=== PATIENT | male | born 1935 | race Caucasian/White ===

== ENCOUNTER → 2016-08-29 | Outpatient (REF) | payer MEDICARE, OTHER ==
[~2016-08-29] MED LIST: /ESCI20TA PO; ASPI81CH PO; ASPI81TA83 OR; B-1210009 PO; B12-1CHW PO; CITA20TA4 PO; LEVO88TA3 PO; LIPI10TA PO; OMEP20TA7 PO; SYNT88TA PO
[2016-08-29 13:27] LABS: MEAN CORPUSCULAR HEMOGLOBIN 29.5 pg (27.0-33.0); MEAN CORPUSCULAR HGB CONC 32.6 g/dl (32.0-36.5); MEAN CORPUSCULAR VOLUME 90.5 fl (80.0-96.0); RED CELL DISTRIBUTION WIDTH 13.3 % (11.5-14.5); WHITE BLOOD COUNT 11.3 K/mm3 (4.0-10.0)
[2016-08-29 14:04] LABS: ALBUMIN/GLOBULIN RATIO 0.73 (1.00-1.93); ALKALINE PHOSPHATASE 88 U/L (45-117); ALT/SGPT 16 U/L (12-78); ANION GAP 8 MEQ/L (8-16); AST/SGOT 15 U/L (15-37); BILIRUBIN,TOTAL 0.5 MG/DL (0.2-1.0); BLOOD UREA NITROGEN 11 MG/DL (7-18); CALCIUM LEVEL 8.8 MG/DL (8.8-10.2); CARBON DIOXIDE LEVEL 29 MEQ/L (21-32); CHLORIDE LEVEL 105 MEQ/L (98-107); CHOLESTEROL LEVEL 151 MG/DL (<200); CREATININE FOR GFR 0.96 MG/DL (0.70-1.30); FREE T4 1.18 NG/DL (0.76-1.46); GLOMERULAR FILTRATION RATE > 60.0 (>42); GLUCOSE, FASTING 79 MG/DL (83-110); POTASSIUM SERUM 4.3 MEQ/L (3.5-5.1); SODIUM LEVEL 142 MEQ/L (136-145); TOTAL PROTEIN 7.1 GM/DL (6.4-8.2); TRIGLYCERIDES LEVEL 59 MG/DL (<150)
== END ==
LOC: M SFHCADAM 10:47
PROVIDERS: ATTEND Family Medicine
DX: D72.829 Elevated white blood cell count, unspecified (principal); E78.2 Mixed hyperlipidemia; E03.9 Hypothyroidism, unspecified
CPT/HCPCS: 80053; 80061; 84439; 84443; 85027; G0463

== ENCOUNTER → 2016-12-05 | Outpatient (CLI) | payer MEDICARE, OTHER ==
--- NOTE | 2016-12-05 18:55 | REP ---
RIGHT RIB SERIES: Four views of the right ribs are performed. No fracture or bone lesion is seen. An accompanying view of the chest demonstrates no acute infiltrate. The heart is normal in size. There is calcified tortuous aorta. IMPRESSION: Negative right rib series. Signed by Saeed Ko MD 12/05/2016 07:50 P
[2016-12-05 19:59] LABS: BASO # 0.1 K/mm3 (0.0-0.2); BASO % 0.5 % (0.0-1.0); EOS # 0.1 K/mm3 (0.0-0.50); EOS % 0.5 % (0.0-3.0); LARGE UNSTAINED CELL # 0.2 K/mm3 (0.0-0.4); LARGE UNSTAINED CELL % 1.4 % (0.0-4.0); LYMPH % 13.2 % (24.0-44.0); MEAN CORPUSCULAR HEMOGLOBIN 29.8 pg (27.0-33.0); MEAN CORPUSCULAR HGB CONC 33.1 g/dl (32.0-36.5); MEAN CORPUSCULAR VOLUME 89.8 fl (80.0-96.0); MONO % 6.5 % (0.0-5.0); NEUTROPHILS % 77.9 % (36.0-66.0); PLATELET COUNT, AUTOMATED 327 k/mm3 (150-450); RED CELL DISTRIBUTION WIDTH 13.7 % (11.5-14.5); WHITE BLOOD COUNT 15.4 K/mm3 (4.0-10.0)
[2016-12-05 20:02] LABS: ALBUMIN 3.2 GM/DL (3.2-5.2); ALBUMIN/GLOBULIN RATIO 0.82 (1.00-1.93); ALKALINE PHOSPHATASE 94 U/L (45-117); ALT/SGPT 17 U/L (12-78); ANION GAP 9 MEQ/L (8-16); AST/SGOT 15 U/L (15-37); BILIRUBIN,TOTAL 0.6 MG/DL (0.2-1.0); BLOOD UREA NITROGEN 15 MG/DL (7-18); CARBON DIOXIDE LEVEL 27 MEQ/L (21-32); CHLORIDE LEVEL 103 MEQ/L (98-107); CREATININE FOR GFR 1.06 MG/DL (0.70-1.30); GLOMERULAR FILTRATION RATE > 60.0 (>35); GLUCOSE, FASTING 89 MG/DL (83-110); POTASSIUM SERUM 4.5 MEQ/L (3.5-5.1); SODIUM LEVEL 139 MEQ/L (136-145); TOTAL PROTEIN 7.1 GM/DL (6.4-8.2)
== END ==
LOC: M ADAMS 16:24
PROVIDERS: ATTEND Physician Assistant
DX: R10.11 Right upper quadrant pain (principal)

== ENCOUNTER → 2016-12-10 | Outpatient (CLI) | payer MEDICARE, OTHER ==
[~2016-12-10] MED LIST changes: +GASTROGRAFIN SOLUTION 30ML (Q9963) As Ordered ONE; +ISOVUE-370 76% 100ML VIAL (Q9967) As Ordered ONE
--- NOTE | 2016-12-10 16:11 | REP ---
CT ABDOMEN: REASON: Right upper quadrant pain. COMPARISON: 11/22/2014 CONTRAST: 100 mL Isovue-370. There are chronic lung base changes status quo. There are no pleural or pericardiac effusions. The noncontrast enhanced portion of the examination shows hepatic and splenic densities to be within normal limits. There are no nephroliths. Contrast enhanced portion of the examination shows a rim enhancing 3.2 x 3.2 x 3.3 cm sized air fluid level arising from the posterior edge of the posterior segment of the right lobe of the liver. This has decreased significantly in size compared to the prior exam when it measured over 7 cm. There are no additional perihepatic abnormalities. The spleen, pancreas, adrenal glands, and kidneys are essentially unchanged and again seen to be within normal limits. The abdominal aorta and periaortic regions are within normal limits for the patient's age and essentially unchanged. The bowel loops and their mesenteries are essentially unchanged remaining within normal limits. CT PELVIS: There is sigmoid colon diverticulosis status quo. Multiple radiodensities are again seen in the prostate gland from previous brachytherapy. There is no free fluid or free air. Bone window technique throughout the exam shows no significant change in the appearance of the osseous structures. IMPRESSION: Right upper quadrant abscess as described above. Signed by Tim Álvarez DO 12/10/2016 05:04 P
== END ==
LOC: M RAD 13:18
PROVIDERS: ATTEND Family Medicine
DX: R10.11 Right upper quadrant pain (principal); K75.0 Abscess of liver
CPT/HCPCS: 74178; Q9963; Q9967

== ENCOUNTER → 2016-12-12 | Outpatient (CLI) | payer MEDICARE, OTHER ==
[~2016-12-12] MED LIST changes: +ACET-683 PO; +AZIL1TAB PO; +BACT800T5 PO; -GASTROGRAFIN SOLUTION 30ML (Q9963) As Ordered ONE; -ISOVUE-370 76% 100ML VIAL (Q9967) As Ordered ONE; +SULF1TAB23 PO
== END ==
LOC: M SMT 15:01
PROVIDERS: ATTEND Family Medicine
DX: K75.0 Abscess of liver (principal)
CPT/HCPCS: 36415; 85610; 85730; G0463

== ENCOUNTER → 2016-12-17 | Outpatient (CLI) | payer MEDICARE, OTHER ==
[~2016-12-17] MED LIST changes: +ISOVUE-300 61% 50ML VIAL (Q9967) As Ordered ONE
--- NOTE | 2016-12-17 18:07 | REPKIM ---
CLINICAL HISTORY: Right perihepatic abnormal fluid collection containing air suspicious to be infected as documented by the recent CT study. The referring service has asked a drainage catheter placement. PROCEDURE: Right perihepatic abscess drainage catheter placement and sinogram INTERVENTIONALIST: Amanda Johnson MD MEDICATIONS: Local Lidocaine CONTRAST: 5 mL Isovue 300 EBL: less than 5 mL DEVICE USED: 10F Resolve catheter FLUORO TIME: 2.0 minutes PROCEDURE: The risks and benefits of the procedure were explained to the patient and informed written consent was obtained. The patient was brought to the interventional radiology suite and positioned supine on the table. Time out procedure was performed. The right perihepatic abnormal cavity was localized using US and then prepped and draped in a usual sterile fashion. Using US guidance, an 18-gauge Trocar needle was advanced to the targeted abnormal fluid collection containing air, after infiltration of the skin and deep tissues with local anesthetic. Initial aspirate revealed purulent discharge consistent with an abscess. A sample of the fluid sent for gram stain and culture. Contrast injection showed a loculated abscess cavity with no evidence of fistulous communication or leak. Using this access, a guidewire was advanced into and coiled within the abscess cavity. A 10-Croatian drainage catheter was then advanced over the wire. Its distal loop was formed and locked in the abnormal cavity. Approximately 00 mL of blood tinged purulent discharge manually aspirated. The drainage catheter was then secured to the skin with the Revolution device. The drainage catheter was flushed and connected to a gravity drainage bag. The patient tolerated the procedure with no immediate complications. This procedure was performed using ultrasound and fluoroscopy guidance. IMPRESSION: Successful 10F locking drainage catheter placement in the right perihepatic abscess as discussed above. A sample of the fluid sent for c/s. Findings discussed via phone with Dr. Tomlinson at the completion of this study. Continue current antibiotics and modify based on culture and sensitivity. Plan for continued external drainage with follow up abscessogram possible drainage catheter removal/intervention in approximately one week. Dr. Johnson was present for the entire procedure as documented in the progress notes. cc: MD Wilma Bradford DO MTDD
== END | disposition home or self-care (01) ==
LOC: M IRPRO 10:35
PROVIDERS: ATTEND Family Medicine
DX: K75.0 Abscess of liver (principal)
CPT/HCPCS: 49405; 87070; 87075; 87077; 87186; 87205; C1729; C1769; C1894; Q9967

== ENCOUNTER 2016-12-20 22:22 | Inpatient (IN) | payer MEDICARE, OTHER ==
[~2016-12-20] VITALS: Ht 167.6 cm; Wt 67.7 kg
[~2016-12-20 22:22] MED LIST changes: -ACET-683 PO; -AZIL1TAB PO; -BACT800T5 PO; -ISOVUE-300 61% 50ML VIAL (Q9967) As Ordered ONE; -SULF1TAB23 PO
[2016-12-20] MEDS ORDERED: BACT800T5 PO (22:45)
[2016-12-20] MEDS ORDERED: AZIL1TAB PO (22:45)
[2016-12-20] MEDS ORDERED: ACET-683 PO (22:45)
[2016-12-20 23:35] LABS: BASO % 0.2 % (0.0-1.0); EOS # 0.3 K/mm3 (0.0-0.50); EOS % 2.3 % (0.0-3.0); LARGE UNSTAINED CELL # 0.2 K/mm3 (0.0-0.4); LARGE UNSTAINED CELL % 1.6 % (0.0-4.0); LYMPH # 2.3 K/mm3 (1.5-4.5); LYMPH % 13.7 % (24.0-44.0); MEAN CORPUSCULAR HEMOGLOBIN 28.4 pg (27.0-33.0); MEAN CORPUSCULAR HGB CONC 32.8 g/dl (32.0-36.5); MEAN CORPUSCULAR VOLUME 86.5 fl (80.0-96.0); MONO % 6.6 % (0.0-5.0); NEUTROPHILS # 11.2 K/mm3 (1.8-7.7); NEUTROPHILS % 75.6 % (36.0-66.0); PLATELET COUNT, AUTOMATED 268 k/mm3 (150-450); RED CELL DISTRIBUTION WIDTH 14.1 % (11.5-14.5); WHITE BLOOD COUNT 14.7 K/mm3 (4.0-10.0)
[2016-12-20 23:53] LABS: ANION GAP 8 MEQ/L (8-16); BLOOD UREA NITROGEN 13 MG/DL (7-18); CALCIUM LEVEL 8.2 MG/DL (8.8-10.2); CARBON DIOXIDE LEVEL 24 MEQ/L (21-32); CHLORIDE LEVEL 103 MEQ/L (98-107); CREATININE FOR GFR 0.89 MG/DL (0.70-1.30); GLOMERULAR FILTRATION RATE > 60.0 (>35); GLUCOSE, FASTING 103 MG/DL (83-110); POTASSIUM SERUM 3.6 MEQ/L (3.5-5.1); SODIUM LEVEL 135 MEQ/L (136-145)
--- NOTE | 2016-12-21 00:10 | REPUSA ---
CT of the abdomen and pelvis without contrast Clinical statement: fever, drainage. Technique: Multiple axial CT images were obtained from the base of the lungs to the floor of the pelv is utilizing 5 mm axial slices without administration of contrast. Coronal and sagittal reconstructio ns were also obtained. Comparison: 12/10/2016. Findings: Chest: There is a partially loculated right basilar pleural effusion with right lower lobe atelectasi s. The left lung base is clear. Abdomen: The kidneys are normal in size bilaterally. There is no evidence of hydronephrosis or nephro lithiasis. There is a percutaneous drainage catheter demonstrated in the right upper quadrant, burr sander ior to the right lobe of the liver. Minimal soft tissue density is seen at the site, without a discr ete fluid collection identified at this time. The liver, spleen, pancreas, gallbladder and adrenal gl ands are unremarkable. The aorta demonstrates moderate atherosclerosis, without evidence of aneurysm. There is no abdominal lymphadenopathy or ascites. Pelvis: The bowel is unremarkable, with no obstructive or inflammatory changes. There is minimal sigm oid diverticulosis. The urinary bladder is within normal limits. There is no pelvic lymphadenopathy o r ascites. Prostatic seeds are in place. Bones: There are no suspicious osseous abnormalities seen. Impression: 1. Percutaneous drainage catheter in the posterior right upper quadrant is in place. The loculated fl uid collection seen on the prior study has resolved Minimal soft tissue density remains at the site. 2. Persistent partially loculated right basilar pleural effusion with right lower lobe atelectasis. A small empyema cannot be excluded. 3. No evidence of hydronephrosis or nephrolithiasis. 4. Moderate diffuse atherosclerosis of the abdominal aorta, without evidence of aneurysm. 5. No evidence of obstructive or inflammatory bowel changes. Stable sigmoid diverticulosis.
[2016-12-21] MEDS ORDERED: ISOVUE-370 76% 100ML VIAL (Q9967) As Ordered ONE (00:21)
--- NOTE | 2016-12-21 01:30 | REPUSA ---
CT angiogram of the chest Clinical statement: empyema. Technique: Multiple axial CT images were obtained from the thoracic inlet through the upper abdomen a fter a bolus administration of nonionic intravenous contrast. Coronal and sagittal reconstructions we re also obtained. Comparison: None. Findings: The pulmonary arteries are well-opacified with contrast, with no intraluminal filling defec ts to suggest embolism. The thoracic aorta is unremarkable other than for minor atherosclerotic seg[place] es. Thyroid gland is within normal limits. There is no thoracic lymphadenopathy. There is a multilocu lated right basilar pleural effusion. There is minimal right lower lobe infiltrate.Limited imaging of the upper abdomen is unremarkable. There are no suspicious osseous lesions. Impression: 1. Multiloculated pleural effusion of the right lung base which could represent an empyema. Clinical correlation is recommended. Minimal right basilar infiltrate/atelectasis is also appreciated. 2. No evidence of pulmonary embolism.
[2016-12-21] MEDS ORDERED: diphenhydrAMINE INJ 50MG/ML VIAL (J1200) IV STA (01:52)
[2016-12-21] MEDS ORDERED: IMIPENEM/CILASTATIN 500 MG in D5W MINI-BAG PLUS 100 ML IV ONE (02:00)
[2016-12-21] MEDS ORDERED: VANCOMYCIN HCL 750 MG, VIAL MATE ADAPTER 1 EACH in D5W 250 ML IV ONE (02:00)
--- NOTE | 2016-12-21 04:34 | HPE ---
DATE OF ADMISSION: 12/21/2016 ATTENDING PHYSICIAN: Farhad Tomlinson MD. CHIEF COMPLAINT: Fever. HISTORY OF PRESENT ILLNESS: The patient is an 81-year-old white male with several chronic medical conditions listed below, came to the hospital for an evaluation of the fever. The history is provided by his significant other, as well as the caregiver since he is a poor historian. Per the family, he had a history of a liver abscess 2 years ago, which was treated with antibiotic plus drainage. Then back to Saturday he was found to have some fever, pain in his right upper quadrant. He came to the emergency room (ER). He underwent CT scan which demonstrated liver abscess again. The interventional radiologist put a drainage catheter and he was discharged back to the [facility] with oral Cipro and Flagyl. However, per the caregiver, the abscess culture came back with Escherichia (E) coli which is resistant to Cipro and Flagyl. Dr. Tomlinson was contacted yesterday and planned to change antibiotics. However, patient was not feeling good. He has some worsening pain in his right side upper quadrant, as well as has fever 100.2. It was decided to send him to the ER for further evaluation. In the ER, he underwent CT scan again, which demonstrated he has a right-sided pleural effusion and a possible empyema. Medicine called for the admission. REVIEW OF SYSTEMS: Not available due to underlying dementia. PAST MEDICAL HISTORY: 1. Liver abscess. 2. Prostate cancer status post radiation and surgery. 3. Parkinson's disease. 4. Hypothyroidism. PAST SURGICAL HISTORY: 1. Status post cholecystectomy. 2. Prostate gland surgery. FAMILY HISTORY: Both parents , a long time ago. No family history of diabetes or coronary artery disease. SOCIAL HISTORY: No history of tobacco use. No history of alcohol abuse. No illicit drug abuse. He is DO NOT RESUSCITATE. ALLERGIES: Allergic to PENICILLIN, MORPHINE, PROCAINE, FLUTICASONE. MEDICATIONS: - Tylenol - aspirin - Lipitor - vitamin B12 - Synthroid - rasagiline PHYSICAL EXAMINATION: VITAL SIGNS: Temperature 98.7, pulse 77, respirations 16, blood pressure 132/67, and oxygen saturation 97% on room air. GENERAL: He is awake, alert, oriented to people only. Mildly demented. HEENT: Atraumatic. Pupils are equal, round and reactive to light. No jaundice. Extraocular muscles intact. Ears, nose and throat are normal. No oral ulcer on mouth mucosa. A little bit dry. Neck no jugular venous distention (JVD). No bruits. LUNGS: Clear, no wheezing, no crackles. HEART: S1, S2 regular. No murmur. ABDOMEN: Soft. Bowel sounds positive. Nontender. He has right upper quadrant intra-abdominal drainage catheter. LOWER EXTREMITIES: No edema in bilateral lower extremities. NEUROLOGICAL: Nonfocal. SKIN: No rash. PSYCHOLOGICAL: No acute psychosis. DIAGNOSTIC LABORATORY STUDIES: Including the following: CBC and differential showed WBC 140.7, hemoglobin and hematocrit 11.8/36, platelets 268. Sodium 135, potassium 3.6, chloride 103, bicarbonate 24, BUN 13, creatinine 0.8, glucose 103. CT of abdomen, as well as chest was reviewed. IMPRESSION: 1. Liver abscess status post catheter drainage. 2. Right pleural effusion, possible empyema. 3. History of Parkinson's disease. 4. History of hypothyroidism. PLAN: Patient will be admitted to the medical/surgical floor. His abscess culture came back with Escherichia (E) coli which is resistant to Cipro. We started him on intravenous (IV) ceftriaxone. The CT demonstrated possible right pleural effusion and empyema. He may need consult interventional radiology for possible drainage. Otherwise, medically stable. Will continue his most routine medications.
[2016-12-21 05:15] VITALS: BP 137/80
[2016-12-21] MEDS: cefTRIAXone SOD 1 GM in D5W MINI-BAG PLUS 50 ML IV SCH (06:44)
[2016-12-21] MEDS: NS 1,000 ML IV SCH ×3 (06:44→23:14)
[2016-12-21] MEDS: LEVOTHYROXINE 88MCG TABLET (0.088 MG) PO SCH (06:44)
[2016-12-21] MEDS: HEPARIN SOD (PORCINE) 5000 UNITS/ML VIAL SC SCH ×3 (06:45→21:22)
[2016-12-21] MEDS: PANTOPRAZOLE 40MG TAB (PROTONIX) PO SCH (08:28)
[2016-12-21] MEDS: CYANOCOBALAMIN 500 MCG TAB PO SCH ×2 (08:28→21:22)
[2016-12-21] MEDS: SENOKOT S TAB PO SCH ×2 (08:28→21:22)
[2016-12-21 08:50] LABS: MEAN CORPUSCULAR HEMOGLOBIN 28.6 pg (27.0-33.0); MEAN CORPUSCULAR HGB CONC 32.2 g/dl (32.0-36.5); MEAN CORPUSCULAR VOLUME 88.9 fl (80.0-96.0); RED CELL DISTRIBUTION WIDTH 13.9 % (11.5-14.5); WHITE BLOOD COUNT 17.9 K/mm3 (4.0-10.0)
[2016-12-21] MEDS ORDERED: AZILECT 1 MG PO SCH (09:00)
[2016-12-21 09:49] LABS: ALBUMIN 2.5 GM/DL (3.2-5.2); ALBUMIN/GLOBULIN RATIO 0.69 (1.00-1.93); ALKALINE PHOSPHATASE 60 U/L (45-117); ALT/SGPT 10 U/L (12-78); ANION GAP 8 MEQ/L (8-16); AST/SGOT 15 U/L (15-37); BILIRUBIN,TOTAL 0.7 MG/DL (0.2-1.0); BLOOD UREA NITROGEN 10 MG/DL (7-18); CALCIUM LEVEL 7.9 MG/DL (8.8-10.2); CARBON DIOXIDE LEVEL 25 MEQ/L (21-32); CHLORIDE LEVEL 105 MEQ/L (98-107); CREATININE FOR GFR 0.98 MG/DL (0.70-1.30); GLOMERULAR FILTRATION RATE > 60.0 (>35); GLUCOSE, FASTING 123 MG/DL (83-110); POTASSIUM SERUM 3.8 MEQ/L (3.5-5.1); SODIUM LEVEL 138 MEQ/L (136-145); TOTAL PROTEIN 6.1 GM/DL (6.4-8.2)
--- NOTE | 2016-12-21 10:49 | IPNPDOC ---
Subjective Date Seen The patient was seen on 12/21/16. Subjective Chief Complaint/HPI The patient is a 81-year-old male admitted with a reason for visit of Liver Abcess. Events since last encounter Pt this morning c/o persistent R upper neck/chest pain, at the collarbone. General: Reports: Fatigue Constitutional: Denies: Chills, Fever Pulmonary: Reports: Dyspnea, Cough Cardiovascular: Denies: Chest Pain, Palpitations Gastrointestinal: Reports: Diarrhea (one loose BM this morning), Denies: Nausea, Vomiting Neurological: Reports: Weakness Psych: Reports: Mood Normal Objective Physical Examination General Exam: Positive: Alert, No Acute Distress ENT Exam: Positive: Mucous membr. moist/pink Chest Exam: Positive: Diminished, Negative: Clear to auscultation, Normal air movement, Rales, Rhonchi, Wheezing Heart Exam: Positive: Rate Normal, Normal S1, Normal S2, Negative: Murmurs Abdomen Exam: Positive: Normal bowel sounds, Soft, Negative: Tenderness Extremity Exam: Negative: Edema Psych Exam: Positive: Mental status NL Assessment /Plan Problems (1) Liver abscess Status: Acute Response to Treatment: Stable Discussed With: Nurse, Senior Software Manager, Patient Problem Specific Plan: Consult Specialist, Monitor Clinically, Repeat Labs Problem Text: ceftriaxone D1 (12/20 received vanco 1 and Primaxin) 12/21/16 WBC 17.9 (12/20 14.7), afebrile, ESR 63, CRP 13 12/17/16 Right perihepatic abscess drainage catheter placement and sinogram performed by Dr. Johnson-culture: few E Coli res to cipro (was started on cipro/ metro po until 12/21, wherein changed to ceftriaxone) 12/20/16 BCX P 12/10/16 CT AP Contrast enhanced portion of the examination shows a rim enhancing 3.2 x 3.2 x 3.3 cm sized air fluid level arising from the posterior edge of the posterior segment of the right lobe of the liver Also with h/o abscess 2014, managed by Dr Carrillo at that time. (2) Empyema of right pleural space Status: Acute Response to Treatment: Stable Discussed With: Nurse, Senior Software Manager, Patient Problem Specific Plan: Consult Specialist, Monitor Clinically, Repeat Labs Problem Text: 12/21/16 s/p thoracentesis of possible empyema (30 cc translucent yellow fluid removed) Rocephin has good penetration to the pleural space. 12/21/16 CT chest c multiloculated pleural effusion of the right lung base which could represent an empyema. (3) Hypothyroidism Status: Chronic Response to Treatment: Stable Problem Specific Plan: Monitor Clinically Problem Text: Cont home med. Plan/VTE VTE Prophylaxis Ordered?: Yes VS, I&O, 24H, Fishbone Vital Signs/I&O Vital Signs Date Time Temp Pulse Resp B/P (MAP) Pulse Ox O2 Delivery O2 Flow Rate FiO2 12/21/16 05:15 98.1 78 18 137/80 (99) 96 Room Air I&O- Last 24 Hours up to 6 AM 12/21/16 06:00 Intake Total 90 ml Output Total 0 ml Balance 90 ml Laboratory Data 24H LABS Laboratory Tests 2 12/20/16 23:19: White Blood Count 14.7H, Red Blood Count 4.16L, Hemoglobin 11.8L, Hematocrit 36.0L, Mean Corpuscular Volume 86.5, Mean Corpuscular Hemoglobin 28.4, Mean Corpuscular Hemoglobin Concent 32.8, Red Cell Distribution Width 14.1, Platelet Count 268, Neutrophils (%) (Auto) 75.6H, Lymphocytes (%) (Auto) 13.7L, Monocytes (%) (Auto) 6.6H, Eosinophils (%) (Auto) 2.3, Basophils (%) (Auto) 0.2 , Neutrophils # (Auto) 11.2H, Lymphocytes # (Auto) 2.3, Monocytes # (Auto) 1.0H , Eosinophils # (Auto) 0.3, Basophils # (Auto) 0.0, Large Unclassified Cells % 1.6, Large Unclassified Cells # 0.2, Anion Gap 8, Glomerular Filtration Rate > 60.0, Lactic Acid Level 0.7, Blood Urea Nitrogen 13, Creatinine 0.89, Sodium Level 135L, Potassium Level 3.6, Chloride Level 103, Carbon Dioxide Level 24, Calcium Level 8.2L 12/21/16 08:41: Anion Gap 8, Glomerular Filtration Rate > 60.0, Blood Urea Nitrogen 10, Creatinine 0.98, Sodium Level 138, Potassium Level 3.8, Chloride Level 105, Carbon Dioxide Level 25, Calcium Level 7.9L, Erythrocyte Sedimentation Rate 63H , Aspartate Amino Transf (AST/SGOT) 15, Alanine Aminotransferase (ALT/SGPT) 10L , Alkaline Phosphatase 60, Total Bilirubin 0.7, Total Protein 6.1L, Albumin 2.5L , C-Reactive Protein, Quantitative 13.10H, Albumin/Globulin Ratio 0.69L CBC/BMP Laboratory Tests 12/20/16 23:19 Red Blood Count 4.16 L, Mean Corpuscular Volume 86.5, Mean Corpuscular Hemoglobin 28.4, Mean Corpuscular Hemoglobin Concent 32.8, Red Cell Distribution Width 14.1, Neutrophils (%) (Auto) 75.6 H, Lymphocytes (%) (Auto) 13.7 L, Monocytes (%) (Auto) 6.6 H, Eosinophils (%) (Auto) 2.3, Basophils (%) ( Auto) 0.2, Neutrophils # (Auto) 11.2 H, Lymphocytes # (Auto) 2.3, Monocytes # ( Auto) 1.0 H, Eosinophils # (Auto) 0.3, Basophils # (Auto) 0.0, Calcium Level 8.2 L 12/21/16 08:41 Red Blood Count 4.35, Mean Corpuscular Volume 88.9, Mean Corpuscular Hemoglobin 28.6, Mean Corpuscular Hemoglobin Concent 32.2, Red Cell Distribution Width 13.9 , Calcium Level 7.9 L, Aspartate Amino Transf (AST/SGOT) 15, Alanine Aminotransferase (ALT/SGPT) 10 L, Alkaline Phosphatase 60, Total Bilirubin 0.7, Total Protein 6.1 L, Albumin 2.5 L Microbiology Microbiology 12/20/16 Blood Culture, Received Pending CHRIS HERNANDEZ PA-C Dec 21, 2016 10:49 Jose Manuel Osuna M.D. Dec 21, 2016 15:29
--- NOTE | 2016-12-21 14:20 | REPKIM ---
CLINICAL HISTORY: Patient with right perihepatic abscess, s/p drainage catheter placement on 12/17/16 presents with loculated pleural effusion on the right suspicious to be infected. The right perihepatic abscess culture revealed resistant E coli and antibiotics were changed accordingly. Patient presents for diagnostic aspiration of the loculated pleural effusion. PROCEDURE PERFORMED: Diagnostic aspiration loculated pleural effusion on the right INTERVENTIONALIST: Amanda Johnson MD CONSENT: The risks, benefits and alternatives to the procedure were explained to the patients son and informed phone consent was obtained and witnessed. MEDICATIONS: Local Lidocaine EBL: less than 1 mL PROCEDURE: The patient was brought to the interventional radiology suite where a timeout procedure was performed. The patient was placed with the right side up. The lower chest was prepped and draped in a sterile fashion. Ultrasound was used to locate the largest pocket of right sided pleural effusion. Ultrasound showed a loculated pleural effusion in the medial posterior lower right chest. A smaller effusion in the mid to lateral posterior chest appears to be communicating with the medial pleural effusion. The involved right lower chest pleura is thickened. Local anesthetic was established using Lidocaine. Using ultrasound guidance, a 19 gauge Clarassance centesis catheter was introduced into the target medial loculated pleural effusion. A total of 30 mL of serous fluid was removed. Post aspiration ultrasound showed decreased in size of the mid to lateral effusion as well. The catheter was removed, and manual pressure was applied to the puncture site, followed by application of a sterile dressing. A sample of the fluid sent for gram stain and culture. The patient tolerated the procedure well with no immediate complications. This procedure was performed using ultrasound. Dr. Johnson was present. IMPRESSION: Right perihepatic abscess with resistant E coli. Patient presents with loculated pleural effusion on the right; reactive vs infected fluid. Successful diagnostic aspiration of the loculated pleural effusion. A sample of the fluid sent for c/s. Post aspiration upright CXR demonstrates no pneumothorax. Continue antibiotics. cc: MD Lorena Bradford PA-C MTDD
[2016-12-21 14:45] VITALS: BP 127/64
--- NOTE | 2016-12-21 14:47 | REP ---
Clinical: Status post abscess drainage. Technique: AP and lateral views. Comparison: 03/22/2016. Findings: Mediastinum and cardiac silhouette are stable and within normal limits. Lung bell demonstrate diffuse chronic interstitial changes with bibasilar atelectasis and small pleural effusions. No pneumothorax. Skeletal structures demonstrate osteopenia and degenerative changes. Impression: Bibasilar opacities suggesting atelectasis and small pleural effusions. Signed by Alex Birch MD 12/21/2016 02:39 P
[2016-12-21 15:15] VITALS: BP 128/60
[2016-12-21] MEDS: ACETAMINOPHEN TAB 650MG DOSE (2X325MG) PO PRN ×2 (15:27→21:22)
[2016-12-21 22:00] VITALS: BP 121/58
[2016-12-22] MEDS: cefTRIAXone SOD 1 GM in D5W MINI-BAG PLUS 50 ML IV SCH (05:58)
[2016-12-22] MEDS: LEVOTHYROXINE 88MCG TABLET (0.088 MG) PO SCH (05:58)
[2016-12-22] MEDS: HEPARIN SOD (PORCINE) 5000 UNITS/ML VIAL SC SCH ×3 (05:59→21:26)
[2016-12-22 06:00] VITALS: BP 146/79
[2016-12-22 06:45] LABS: BASO % 0.3 % (0.0-1.0); EOS # 0.3 K/mm3 (0.0-0.50); LARGE UNSTAINED CELL # 0.2 K/mm3 (0.0-0.4); LARGE UNSTAINED CELL % 1.6 % (0.0-4.0); LYMPH # 1.2 K/mm3 (1.5-4.5); MEAN CORPUSCULAR HEMOGLOBIN 29.2 pg (27.0-33.0); MEAN CORPUSCULAR HGB CONC 32.9 g/dl (32.0-36.5); MEAN CORPUSCULAR VOLUME 88.8 fl (80.0-96.0); MONO # 0.6 K/mm3 (0.0-0.8); NEUTROPHILS # 8.2 K/mm3 (1.8-7.7); NEUTROPHILS % 79.1 % (36.0-66.0); PLATELET COUNT, AUTOMATED 289 k/mm3 (150-450); RED CELL DISTRIBUTION WIDTH 13.9 % (11.5-14.5); WHITE BLOOD COUNT 10.3 K/mm3 (4.0-10.0)
[2016-12-22 07:00] LABS: ALBUMIN 2.6 GM/DL (3.2-5.2); ALBUMIN/GLOBULIN RATIO 0.58 (1.00-1.93); ALKALINE PHOSPHATASE 57 U/L (45-117); ALT/SGPT 14 U/L (12-78); ANION GAP 8 MEQ/L (8-16); AST/SGOT 31 U/L (15-37); BILIRUBIN,TOTAL 0.6 MG/DL (0.2-1.0); BLOOD UREA NITROGEN 10 MG/DL (7-18); CALCIUM LEVEL 8.8 MG/DL (8.8-10.2); CARBON DIOXIDE LEVEL 23 MEQ/L (21-32); CHLORIDE LEVEL 105 MEQ/L (98-107); CREATININE FOR GFR 0.87 MG/DL (0.70-1.30); GLOMERULAR FILTRATION RATE > 60.0 (>35); GLUCOSE, FASTING 96 MG/DL (83-110); POTASSIUM SERUM 3.3 MEQ/L (3.5-5.1); SODIUM LEVEL 136 MEQ/L (136-145); TOTAL PROTEIN 7.1 GM/DL (6.4-8.2)
[2016-12-22 07:12] LABS: ERYTHROCYTE SEDIMENTATION RATE 63 mm/hr (0-20)
[2016-12-22] MEDS: PANTOPRAZOLE 40MG TAB (PROTONIX) PO SCH (09:44)
[2016-12-22] MEDS: SENOKOT S TAB PO SCH ×2 (09:44→19:19)
[2016-12-22] MEDS: CYANOCOBALAMIN 500 MCG TAB PO SCH ×2 (09:45→19:19)
[2016-12-22 14:00] VITALS: BP 132/73
[2016-12-22] MEDS ORDERED: OLANZapine 2.5MG TABLET PO ONE (14:00)
[2016-12-22] MEDS: ACETAMINOPHEN TAB 650MG DOSE (2X325MG) PO PRN (14:15)
--- NOTE | 2016-12-22 15:45 | IPNPDOC ---
Subjective Date Seen The patient was seen on 12/22/16. Subjective Chief Complaint/HPI The patient is a 81-year-old male admitted with a reason for visit of Liver Abcess. Events since last encounter Continues to have episodes of confusion. Nursing notes that he often gets confused and tries to walk away. He has difficulty being redirected. Improves with family present. Constitutional: Denies: Chills, Fever Pulmonary: Denies: Dyspnea, Cough Cardiovascular: Denies: Chest Pain, Palpitations, Orthopnea Gastrointestinal: Denies: Nausea, Vomiting, Abdominal Pain, Diarrhea, Constipation Neurological: Reports: Confusion, Denies: Weakness, Numbness, Incoordination, Change in speech Psych: Reports: Mood Normal, Anxiety, Memory Issues Other systems 10 point review systems otherwise negative Objective Physical Examination General Exam: Positive: Alert, No Acute Distress ENT Exam: Positive: Mucous membr. moist/pink Chest Exam: Positive: Diminished, Negative: Clear to auscultation, Normal air movement, Rales, Rhonchi, Wheezing Heart Exam: Positive: Rate Normal, Normal S1, Normal S2, Negative: Murmurs Abdomen Exam: Positive: Normal bowel sounds, Soft, Negative: Tenderness Extremity Exam: Negative: Edema Psych Exam: Positive: Mental status NL Assessment /Plan Problems (1) Liver abscess Status: Acute Response to Treatment: Stable Discussed With: Nurse, Potline Monitor, Patient Problem Specific Plan: Consult Specialist, Monitor Clinically, Repeat Labs Problem Text: ceftriaxone D3 (12/20 received vanco 1 and Primaxin). Afebrile, and vital signs stable. -Gram stain, fluid culture, ascites culture, and blood culture are negative; final results -We will plan on transition to oral medications in anticipation for discharge; clindamycin would cover anaerobes and gram positives and is not on patient's allergy list (2) Empyema of right pleural space Status: Acute Response to Treatment: Stable Discussed With: Nurse, Potline Monitor, Patient Problem Specific Plan: Consult Specialist, Monitor Clinically, Repeat Labs Problem Text: 12/21/16 s/p thoracentesis of possible empyema (30 cc translucent yellow fluid removed) Rocephin has good penetration to the pleural space. 12/21/16 CT chest c multiloculated pleural effusion of the right lung base which could represent an empyema. (3) Hypothyroidism Status: Chronic Response to Treatment: Stable Problem Specific Plan: Monitor Clinically Problem Text: Cont home med. Plan/VTE VTE Prophylaxis Ordered?: Yes Disposition Possible discharge to [facility] on Saturday VS, I&O, 24H, Alyssae Vital Signs/I&O Vital Signs Date Time Temp Pulse Resp B/P (MAP) Pulse Ox O2 Delivery O2 Flow Rate FiO2 12/22/16 14:15 18 12/22/16 06:00 98.9 84 146/79 (101) 96 Room Air I&O- Last 24 Hours up to 6 AM 12/22/16 06:00 Intake Total 2000 ml Output Total 0 ml Balance 2000 ml Laboratory Data 24H LABS Laboratory Tests 2 12/22/16 06:00: White Blood Count 10.3H, Red Blood Count 4.28L, Hemoglobin 12.5L, Hematocrit 38.1L, Mean Corpuscular Volume 88.8, Mean Corpuscular Hemoglobin 29.2, Mean Corpuscular Hemoglobin Concent 32.9, Red Cell Distribution Width 13.9, Platelet Count 289, Neutrophils (%) (Auto) 79.1H, Lymphocytes (%) (Auto) 10.0L, Monocytes (%) (Auto) 6.0H, Eosinophils (%) (Auto) 3.0, Basophils (%) (Auto) 0.3 , Neutrophils # (Auto) 8.2H, Lymphocytes # (Auto) 1.2L, Monocytes # (Auto) 0.6, Eosinophils # (Auto) 0.3, Basophils # (Auto) 0.0, Large Unclassified Cells % 1.6 , Large Unclassified Cells # 0.2, Erythrocyte Sedimentation Rate 63H, Anion Gap 8, Glomerular Filtration Rate > 60.0, Blood Urea Nitrogen 10, Creatinine 0.87, Sodium Level 136, Potassium Level 3.3L, Chloride Level 105, Carbon Dioxide Level 23, Calcium Level 8.8, Aspartate Amino Transf (AST/SGOT) 31, Alanine Aminotransferase (ALT/SGPT) 14, Alkaline Phosphatase 57, Total Bilirubin 0.6, Total Protein 7.1, Albumin 2.6L, C-Reactive Protein, Quantitative 15.10H, Albumin/Globulin Ratio 0.58L CBC/BMP Laboratory Tests 12/22/16 06:00 Red Blood Count 4.28 L, Mean Corpuscular Volume 88.8, Mean Corpuscular Hemoglobin 29.2, Mean Corpuscular Hemoglobin Concent 32.9, Red Cell Distribution Width 13.9, Neutrophils (%) (Auto) 79.1 H, Lymphocytes (%) (Auto) 10.0 L, Monocytes (%) (Auto) 6.0 H, Eosinophils (%) (Auto) 3.0, Basophils (%) ( Auto) 0.3, Neutrophils # (Auto) 8.2 H, Lymphocytes # (Auto) 1.2 L, Monocytes # ( Auto) 0.6, Eosinophils # (Auto) 0.3, Basophils # (Auto) 0.0, Calcium Level 8.8, Aspartate Amino Transf (AST/SGOT) 31, Alanine Aminotransferase (ALT/SGPT) 14, Alkaline Phosphatase 57, Total Bilirubin 0.6, Total Protein 7.1, Albumin 2.6 L Microbiology Microbiology 12/20/16 Blood Culture - Preliminary, Resulted No growth after 24 hours . All specim... 12/21/16 Anaerobic Culture, Received Pending 12/21/16 Gram Stain - Final, Resulted 12/21/16 Body Fluid Culture, Resulted Pending NETTE YU MD Dec 22, 2016 15:45
[2016-12-22] MEDS: NS 1,000 ML IV SCH ×2 (16:19→19:19)
[2016-12-22 20:00] VITALS: BP 129/76
[2016-12-23] MEDS: NS 1,000 ML IV SCH ×3 (01:22→21:59)
[2016-12-23] MEDS: LEVOTHYROXINE 88MCG TABLET (0.088 MG) PO SCH (05:59)
[2016-12-23] MEDS: cefTRIAXone SOD 1 GM in D5W MINI-BAG PLUS 50 ML IV SCH (05:59)
[2016-12-23 06:00] VITALS: BP 144/77
[2016-12-23] MEDS: HEPARIN SOD (PORCINE) 5000 UNITS/ML VIAL SC SCH ×3 (06:00→21:59)
[2016-12-23] MEDS: PANTOPRAZOLE 40MG TAB (PROTONIX) PO SCH (12:23)
[2016-12-23] MEDS: CYANOCOBALAMIN 500 MCG TAB PO SCH ×2 (12:23→21:59)
[2016-12-23] MEDS: SENOKOT S TAB PO SCH ×2 (12:23→21:58)
[2016-12-23 14:00] VITALS: BP 124/68
--- NOTE | 2016-12-23 15:28 | IPNPDOC ---
Subjective Date Seen The patient was seen on 12/23/16. Subjective Chief Complaint/HPI The patient is a 81-year-old male admitted with a reason for visit of Liver Abcess. Events since last encounter Patient doing well today. Continues to have confusion and thinks that "the nurses are making fun of me and laughing at me." He states that "they are mad at me." Healthcare proxy indicates that nothing has changed. Patient denies any current symptoms today. Constitutional: Denies: Chills, Fever, Malaise Skin: Denies: Rash Pulmonary: Denies: Dyspnea, Cough Cardiovascular: Denies: Chest Pain, Palpitations Gastrointestinal: Denies: Nausea, Vomiting, Abdominal Pain, Diarrhea, Constipation Neurological: Reports: Confusion, Denies: Weakness, Numbness, Incoordination, Change in speech Psych: Reports: Mood Normal, Anxiety, Memory Issues Objective Physical Examination General Exam: Positive: Alert, No Acute Distress ENT Exam: Positive: Mucous membr. moist/pink Chest Exam: Positive: Diminished, Negative: Clear to auscultation, Normal air movement, Rales, Rhonchi, Wheezing Heart Exam: Positive: Rate Normal, Normal S1, Normal S2, Negative: Murmurs Abdomen Exam: Positive: Normal bowel sounds, Soft, Negative: Tenderness Extremity Exam: Negative: Edema Psych Exam: Negative: Mental status NL (alert and oriented to person only), Memory Intact, Oriented x 3 (acute delirium) Assessment /Plan Problems (1) Liver abscess Status: Acute Response to Treatment: Stable Discussed With: Nurse, Print Inspector, Patient Problem Specific Plan: Consult Specialist, Monitor Clinically, Repeat Labs Problem Text: ceftriaxone D3 (12/20 received vanco 1 and Primaxin). Afebrile, and vital signs stable. -Gram stain, fluid culture, ascites culture, and blood culture are negative; final results -We will plan on transition to oral medications in anticipation for discharge; clindamycin would cover anaerobes and gram positives and is not on patient's allergy list (2) Empyema of right pleural space Status: Acute Response to Treatment: Stable Discussed With: Nurse, Print Inspector, Patient Problem Specific Plan: Consult Specialist, Monitor Clinically, Repeat Labs Problem Text: Fluid cultures are negative, final results (3) Hypothyroidism Status: Chronic Response to Treatment: Stable Problem Specific Plan: Monitor Clinically Problem Text: Cont home med. Plan/VTE VTE Prophylaxis Ordered?: Yes Disposition Plan for discharge back to [facility] keep on by mouth clindamycin on Saturday VS, I&O, 24H, Fishbone Vital Signs/I&O Vital Signs Date Time Temp Pulse Resp B/P (MAP) Pulse Ox O2 Delivery O2 Flow Rate FiO2 12/23/16 06:00 98.9 82 18 144/77 (99) 97 Room Air I&O- Last 24 Hours up to 6 AM 12/23/16 06:00 Intake Total 1660 ml Output Total 0 ml Balance 1660 ml Laboratory Data Microbiology Microbiology 12/20/16 Blood Culture - Preliminary, Resulted No Growth after 48 hours. All Specime... 12/21/16 Anaerobic Culture - Final, Complete 12/21/16 Gram Stain - Final, Complete 12/21/16 Body Fluid Culture - Final, Complete NETTE YU MD Dec 23, 2016 15:28
[2016-12-23] MEDS ORDERED: OLANZapine 2.5MG TABLET PO SCH (21:00)
[2016-12-23 22:00] VITALS: BP 121/61
[2016-12-24] MEDS: cefTRIAXone SOD 1 GM in D5W MINI-BAG PLUS 50 ML IV SCH (05:56)
[2016-12-24] MEDS: HEPARIN SOD (PORCINE) 5000 UNITS/ML VIAL SC SCH ×3 (05:59→21:51)
[2016-12-24] MEDS: LEVOTHYROXINE 88MCG TABLET (0.088 MG) PO SCH (05:59)
[2016-12-24 06:00] VITALS: BP 116/62
[2016-12-24] MEDS: CYANOCOBALAMIN 500 MCG TAB PO SCH ×2 (10:18→21:51)
[2016-12-24] MEDS: PANTOPRAZOLE 40MG TAB (PROTONIX) PO SCH (10:18)
[2016-12-24] MEDS: NS 1,000 ML IV SCH (10:18)
[2016-12-24] MEDS: SENOKOT S TAB PO SCH ×2 (10:18→21:51)
--- NOTE | 2016-12-24 10:41 | IPNPDOC ---
Subjective Date Seen The patient was seen on 12/24/16. Subjective Chief Complaint/HPI The patient is a 81-year-old male admitted with a reason for visit of Liver Abcess. Events since last encounter Pt denies any new issues. Denies CP, Abd pain, SOB. Constitutional: Denies: Chills, Fever Pulmonary: Denies: Dyspnea Cardiovascular: Denies: Chest Pain Gastrointestinal: Denies: Abdominal Pain Objective Physical Examination General Exam: Positive: Alert, No Acute Distress ENT Exam: Positive: Mucous membr. moist/pink Chest Exam: Positive: Diminished, Negative: Clear to auscultation, Normal air movement, Rales, Rhonchi, Wheezing Heart Exam: Positive: Rate Normal, Normal S1, Normal S2, Negative: Murmurs Abdomen Exam: Positive: Normal bowel sounds, Soft, Negative: Tenderness Extremity Exam: Negative: Edema Psych Exam: Positive: Mental status NL (alert and oriented to person only), Negative: Memory Intact, Oriented x 3 (acute delirium) Assessment /Plan Assessment Family Medicine Attending Note: I saw and examined Mr. Bryan, discussed with Ike Haley, FAYE-C agree with their note as documented. Mr. Bryan seems to making slow but steady clinical progress. We'll continue his current regimen for now. (halfway house counselor) Problems (1) Liver abscess Status: Acute Response to Treatment: Stable Discussed With: Nurse, Company Tanker Truck Driver, Patient Problem Specific Plan: Consult Specialist, Monitor Clinically, Repeat Labs Problem Text: 12/24 - Today's labs pending. IV ceftriaxone D4 (12/20 received vanco 1 and Primaxin). 12/23 - ceftriaxone D3 (12/20 received vanco 1 and Primaxin). Afebrile, and vital signs stable. -Gram stain, fluid culture, ascites culture, and blood culture are negative; final results -We will plan on transition to oral medications in anticipation for discharge; clindamycin would cover anaerobes and gram positives and is not on patient's allergy list (2) Empyema of right pleural space Status: Acute Response to Treatment: Stable Discussed With: Nurse, Company Tanker Truck Driver, Patient Problem Specific Plan: Consult Specialist, Monitor Clinically, Repeat Labs Problem Text: Fluid cultures are negative, final results (3) Hypothyroidism Status: Chronic Response to Treatment: Stable Problem Specific Plan: Monitor Clinically Problem Text: Cont home med. Plan/VTE VTE Prophylaxis Ordered?: Yes VS, I&O, 24H, Fishbone Vital Signs/I&O Vital Signs Date Time Temp Pulse Resp B/P (MAP) Pulse Ox O2 Delivery O2 Flow Rate FiO2 12/24/16 06:00 98.1 89 18 116/62 (80) 91 Room Air I&O- Last 24 Hours up to 6 AM 12/24/16 06:00 Intake Total 1920 ml Output Total 0 ml Balance 1920 ml Laboratory Data Microbiology Microbiology 12/20/16 Blood Culture - Preliminary, Resulted No Growth after 72 hours. All specime... 12/21/16 Anaerobic Culture - Final, Complete 12/21/16 Gram Stain - Final, Complete 12/21/16 Body Fluid Culture - Final, Complete Ike HaleyC Dec 24, 2016 10:41 Mike Benoit MD Dec 24, 2016 20:33
[2016-12-24 11:12] LABS: BASO % 0.4 % (0.0-1.0); EOS # 0.3 K/mm3 (0.0-0.50); EOS % 3.5 % (0.0-3.0); LARGE UNSTAINED CELL # 0.2 K/mm3 (0.0-0.4); LARGE UNSTAINED CELL % 2.3 % (0.0-4.0); LYMPH # 1.5 K/mm3 (1.5-4.5); LYMPH % 16.2 % (24.0-44.0); MEAN CORPUSCULAR HEMOGLOBIN 28.8 pg (27.0-33.0); MEAN CORPUSCULAR HGB CONC 32.8 g/dl (32.0-36.5); MEAN CORPUSCULAR VOLUME 87.7 fl (80.0-96.0); MONO # 0.5 K/mm3 (0.0-0.8); MONO % 6.6 % (0.0-5.0); NEUTROPHILS # 5.8 K/mm3 (1.8-7.7); PLATELET COUNT, AUTOMATED 295 k/mm3 (150-450); RED CELL DISTRIBUTION WIDTH 14.2 % (11.5-14.5); WHITE BLOOD COUNT 8.2 K/mm3 (4.0-10.0)
[2016-12-24 11:53] LABS: ALBUMIN 1.9 GM/DL (3.2-5.2); ALBUMIN/GLOBULIN RATIO 0.58 (1.00-1.93); ALKALINE PHOSPHATASE 43 U/L (45-117); ALT/SGPT 20 U/L (12-78); ANION GAP 7 MEQ/L (8-16); AST/SGOT 30 U/L (15-37); BILIRUBIN,TOTAL 0.3 MG/DL (0.2-1.0); BLOOD UREA NITROGEN 5 MG/DL (7-18); CALCIUM LEVEL 7.9 MG/DL (8.8-10.2); CARBON DIOXIDE LEVEL 25 MEQ/L (21-32); CHLORIDE LEVEL 110 MEQ/L (98-107); CREATININE FOR GFR 0.74 MG/DL (0.70-1.30); GLOMERULAR FILTRATION RATE > 60.0 (>35); GLUCOSE, FASTING 90 MG/DL (83-110); POTASSIUM SERUM 3.5 MEQ/L (3.5-5.1); SODIUM LEVEL 142 MEQ/L (136-145); TOTAL PROTEIN 5.2 GM/DL (6.4-8.2)
[2016-12-24 14:00] VITALS: BP 136/66
[2016-12-24 22:00] VITALS: BP 141/72
[2016-12-25] MEDS: HEPARIN SOD (PORCINE) 5000 UNITS/ML VIAL SC SCH ×3 (05:29→21:57)
[2016-12-25] MEDS: cefTRIAXone SOD 1 GM in D5W MINI-BAG PLUS 50 ML IV SCH (05:29)
[2016-12-25] MEDS: LEVOTHYROXINE 88MCG TABLET (0.088 MG) PO SCH (05:29)
[2016-12-25 06:19] VITALS: BP 148/72
[2016-12-25 06:44] LABS: BASO % 0.4 % (0.0-1.0); EOS # 0.4 K/mm3 (0.0-0.50); EOS % 4.1 % (0.0-3.0); LARGE UNSTAINED CELL # 0.2 K/mm3 (0.0-0.4); LARGE UNSTAINED CELL % 2.4 % (0.0-4.0); LYMPH # 1.6 K/mm3 (1.5-4.5); LYMPH % 15.6 % (24.0-44.0); MEAN CORPUSCULAR HEMOGLOBIN 29.6 pg (27.0-33.0); MONO # 0.7 K/mm3 (0.0-0.8); MONO % 6.9 % (0.0-5.0); NEUTROPHILS # 7.1 K/mm3 (1.8-7.7); NEUTROPHILS % 70.7 % (36.0-66.0); PLATELET COUNT, AUTOMATED 311 k/mm3 (150-450); RED CELL DISTRIBUTION WIDTH 13.8 % (11.5-14.5)
[2016-12-25 06:56] LABS: ALBUMIN/GLOBULIN RATIO 0.54 (1.00-1.93); ALKALINE PHOSPHATASE 46 U/L (45-117); ALT/SGPT 21 U/L (12-78); ANION GAP 9 MEQ/L (8-16); AST/SGOT 30 U/L (15-37); BILIRUBIN,TOTAL 0.3 MG/DL (0.2-1.0); BLOOD UREA NITROGEN 6 MG/DL (7-18); CALCIUM LEVEL 7.8 MG/DL (8.8-10.2); CARBON DIOXIDE LEVEL 24 MEQ/L (21-32); CHLORIDE LEVEL 107 MEQ/L (98-107); CREATININE FOR GFR 0.79 MG/DL (0.70-1.30); GLOMERULAR FILTRATION RATE > 60.0 (>35); GLUCOSE, FASTING 103 MG/DL (83-110); POTASSIUM SERUM 3.3 MEQ/L (3.5-5.1); SODIUM LEVEL 140 MEQ/L (136-145); TOTAL PROTEIN 5.7 GM/DL (6.4-8.2)
[2016-12-25] MEDS ORDERED: POTASSIUM CHLORIDE 10 MEQ SR TABLET PO ONE (08:15)
--- NOTE | 2016-12-25 08:16 | IPNPDOC ---
Subjective Date Seen The patient was seen on 12/25/16. Subjective Chief Complaint/HPI The patient is a 81-year-old male admitted with a reason for visit of Liver Abcess. Events since last encounter Pt without new concerns. He has a sitter at bedside. He denies pain. General: Denies: Fatigue Constitutional: Denies: Chills, Fever ENT: Denies: Head Aches Pulmonary: Denies: Dyspnea, Cough Cardiovascular: Denies: Chest Pain, Palpitations Gastrointestinal: Denies: Nausea, Vomiting, Diarrhea Neurological: Reports: Numbness Psych: Reports: Mood Normal Objective Physical Examination General Exam: Positive: Alert, No Acute Distress ENT Exam: Positive: Mucous membr. moist/pink Chest Exam: Positive: Diminished, Negative: Clear to auscultation, Normal air movement, Rales, Rhonchi, Wheezing Heart Exam: Positive: Rate Normal, Normal S1, Normal S2, Negative: Murmurs Abdomen Exam: Positive: Normal bowel sounds, Soft, Negative: Tenderness Extremity Exam: Negative: Edema Psych Exam: Positive: Mental status NL (alert and oriented to person only), Negative: Memory Intact, Oriented x 3 (acute delirium) Assessment /Plan Problems (1) Liver abscess Status: Acute Response to Treatment: Stable Discussed With: Nurse, Credit Review Officer, Patient Problem Specific Plan: Consult Specialist, Monitor Clinically, Repeat Labs Problem Text: 12/25 - remains afebrile without significant leukocytosis, although WBC did increase today from 8.2 to 10. Will repeat ESR, CRP in AM. Cont with IV Ceftriaxone D 5. 12/24 - Today's labs pending. IV ceftriaxone D4 (12/20 received vanco 1 and Primaxin). 12/23 - ceftriaxone D3 (12/20 received vanco 1 and Primaxin). Afebrile, and vital signs stable. -Gram stain, fluid culture, ascites culture, and blood culture are negative; final results -We will plan on transition to oral medications in anticipation for discharge; clindamycin would cover anaerobes and gram positives and is not on patient's allergy list (2) Empyema of right pleural space Status: Acute Response to Treatment: Stable Discussed With: Nurse, Credit Review Officer, Patient Problem Specific Plan: Consult Specialist, Monitor Clinically, Repeat Labs Problem Text: Fluid cultures are negative, final results (3) Hypothyroidism Status: Chronic Response to Treatment: Stable Problem Specific Plan: Monitor Clinically Problem Text: Cont home med. Plan/VTE VTE Prophylaxis Ordered?: Yes Plan Attending note: I saw and evaluated the patient, and agree with the plan of care as discussed and documented above. Patient is likely ready for discharge. On the day of discharge, I would plan on transitioning him to oral Cipro/Flagyl for his intra- abdominal infection. His blood cultures show no growth to date. He is afebrile, and his vital signs are stable. His mentation is at baseline. Jesús Faith MD Disposition pt will need SNF bed. Address with attending plan for IV abx, to determine time frame for need of bed. VS, I&O, 24H, Fishbone Vital Signs/I&O Vital Signs Date Time Temp Pulse Resp B/P (MAP) Pulse Ox O2 Delivery O2 Flow Rate FiO2 12/25/16 06:19 98.5 70 14 148/72 (97) 91 Room Air I&O- Last 24 Hours up to 6 AM 12/25/16 06:00 Intake Total 600 ml Balance 600 ml Laboratory Data 24H LABS Laboratory Tests 2 12/24/16 10:53: White Blood Count 8.2, Red Blood Count 3.73L, Hemoglobin 10.7L, Hematocrit 32.7L , Mean Corpuscular Volume 87.7, Mean Corpuscular Hemoglobin 28.8, Mean Corpuscular Hemoglobin Concent 32.8, Red Cell Distribution Width 14.2, Platelet Count 295, Neutrophils (%) (Auto) 71.0H, Lymphocytes (%) (Auto) 16.2L, Monocytes (%) (Auto) 6.6H, Eosinophils (%) (Auto) 3.5H, Basophils (%) (Auto) 0.4 , Neutrophils # (Auto) 5.8, Lymphocytes # (Auto) 1.5, Monocytes # (Auto) 0.5, Eosinophils # (Auto) 0.3, Basophils # (Auto) 0.0, Large Unclassified Cells % 2.3 , Large Unclassified Cells # 0.2, Anion Gap 7L, Glomerular Filtration Rate > 60.0, Blood Urea Nitrogen 5L, Creatinine 0.74, Sodium Level 142, Potassium Level 3.5, Chloride Level 110H, Carbon Dioxide Level 25, Calcium Level 7.9L, Aspartate Amino Transf (AST/SGOT) 30, Alanine Aminotransferase (ALT/SGPT) 20, Alkaline Phosphatase 43L, Total Bilirubin 0.3, Total Protein 5.2#L, Albumin 1.9# L, Albumin/Globulin Ratio 0.58L 12/25/16 06:26: White Blood Count 10.0, Red Blood Count 3.78L, Hemoglobin 11.2L, Hematocrit 32.9L, Mean Corpuscular Volume 87.0, Mean Corpuscular Hemoglobin 29.6, Mean Corpuscular Hemoglobin Concent 34.0, Red Cell Distribution Width 13.8, Platelet Count 311, Neutrophils (%) (Auto) 70.7H, Lymphocytes (%) (Auto) 15.6L, Monocytes (%) (Auto) 6.9H, Eosinophils (%) (Auto) 4.1H, Basophils (%) (Auto) 0.4 , Neutrophils # (Auto) 7.1, Lymphocytes # (Auto) 1.6, Monocytes # (Auto) 0.7, Eosinophils # (Auto) 0.4, Basophils # (Auto) 0.0, Large Unclassified Cells % 2.4 , Large Unclassified Cells # 0.2, Anion Gap 9, Glomerular Filtration Rate > 60.0 , Blood Urea Nitrogen 6L, Creatinine 0.79, Sodium Level 140, Potassium Level 3.3L, Chloride Level 107, Carbon Dioxide Level 24, Calcium Level 7.8L, Aspartate Amino Transf (AST/SGOT) 30, Alanine Aminotransferase (ALT/SGPT) 21, Alkaline Phosphatase 46, Total Bilirubin 0.3, Total Protein 5.7L, Albumin 2.0L, Albumin/Globulin Ratio 0.54L CBC/BMP Laboratory Tests 12/24/16 10:53 Red Blood Count 3.73 L, Mean Corpuscular Volume 87.7, Mean Corpuscular Hemoglobin 28.8, Mean Corpuscular Hemoglobin Concent 32.8, Red Cell Distribution Width 14.2, Neutrophils (%) (Auto) 71.0 H, Lymphocytes (%) (Auto) 16.2 L, Monocytes (%) (Auto) 6.6 H, Eosinophils (%) (Auto) 3.5 H, Basophils (%) (Auto) 0.4, Neutrophils # (Auto) 5.8, Lymphocytes # (Auto) 1.5, Monocytes # ( Auto) 0.5, Eosinophils # (Auto) 0.3, Basophils # (Auto) 0.0, Calcium Level 7.9 L , Aspartate Amino Transf (AST/SGOT) 30, Alanine Aminotransferase (ALT/SGPT) 20, Alkaline Phosphatase 43 L, Total Bilirubin 0.3, Total Protein 5.2 #L, Albumin 1.9 #L 12/25/16 06:26 Red Blood Count 3.78 L, Mean Corpuscular Volume 87.0, Mean Corpuscular Hemoglobin 29.6, Mean Corpuscular Hemoglobin Concent 34.0, Red Cell Distribution Width 13.8, Neutrophils (%) (Auto) 70.7 H, Lymphocytes (%) (Auto) 15.6 L, Monocytes (%) (Auto) 6.9 H, Eosinophils (%) (Auto) 4.1 H, Basophils (%) (Auto) 0.4, Neutrophils # (Auto) 7.1, Lymphocytes # (Auto) 1.6, Monocytes # ( Auto) 0.7, Eosinophils # (Auto) 0.4, Basophils # (Auto) 0.0, Calcium Level 7.8 L , Aspartate Amino Transf (AST/SGOT) 30, Alanine Aminotransferase (ALT/SGPT) 21, Alkaline Phosphatase 46, Total Bilirubin 0.3, Total Protein 5.7 L, Albumin 2.0 L Microbiology Microbiology 12/20/16 Blood Culture - Preliminary, Resulted No Growth after 72 hours. All specime... 12/21/16 Anaerobic Culture - Final, Complete 12/21/16 Gram Stain - Final, Complete 12/21/16 Body Fluid Culture - Final, Complete CHRIS HERNANDEZ PA-C Dec 25, 2016 08:16 JESÚS FAITH MD Dec 25, 2016 13:12
[2016-12-25] MEDS: SENOKOT S TAB PO SCH ×2 (10:32→21:57)
[2016-12-25] MEDS: CYANOCOBALAMIN 500 MCG TAB PO SCH ×2 (10:32→21:57)
[2016-12-25] MEDS: PANTOPRAZOLE 40MG TAB (PROTONIX) PO SCH (10:33)
[2016-12-25 14:00] VITALS: BP 169/81
[2016-12-25 15:00] VITALS: BP 145/74
[2016-12-25 22:00] VITALS: BP 141/81
[2016-12-26 06:00] VITALS: BP 139/69
[2016-12-26] MEDS: LEVOTHYROXINE 88MCG TABLET (0.088 MG) PO SCH (06:00)
[2016-12-26] MEDS: cefTRIAXone SOD 1 GM in D5W MINI-BAG PLUS 50 ML IV SCH ×2 (06:00→10:41)
[2016-12-26] MEDS: HEPARIN SOD (PORCINE) 5000 UNITS/ML VIAL SC SCH ×3 (06:01→20:03)
[2016-12-26 07:08] LABS: MEAN CORPUSCULAR HEMOGLOBIN 28.8 pg (27.0-33.0); MEAN CORPUSCULAR HGB CONC 33.1 g/dl (32.0-36.5); MEAN CORPUSCULAR VOLUME 86.9 fl (80.0-96.0); RED CELL DISTRIBUTION WIDTH 13.7 % (11.5-14.5); WHITE BLOOD COUNT 12.2 K/mm3 (4.0-10.0)
[2016-12-26 07:26] LABS: ALBUMIN 2.1 GM/DL (3.2-5.2); ALBUMIN/GLOBULIN RATIO 0.51 (1.00-1.93); ALKALINE PHOSPHATASE 47 U/L (45-117); ALT/SGPT 27 U/L (12-78); ANION GAP 6 MEQ/L (8-16); AST/SGOT 32 U/L (15-37); BILIRUBIN,TOTAL 0.4 MG/DL (0.2-1.0); BLOOD UREA NITROGEN 7 MG/DL (7-18); CALCIUM LEVEL 8.4 MG/DL (8.8-10.2); CARBON DIOXIDE LEVEL 27 MEQ/L (21-32); CHLORIDE LEVEL 106 MEQ/L (98-107); CREATININE FOR GFR 0.75 MG/DL (0.70-1.30); GLOMERULAR FILTRATION RATE > 60.0 (>35); GLUCOSE, FASTING 94 MG/DL (83-110); POTASSIUM SERUM 3.5 MEQ/L (3.5-5.1); SODIUM LEVEL 139 MEQ/L (136-145); TOTAL PROTEIN 6.2 GM/DL (6.4-8.2)
--- NOTE | 2016-12-26 07:50 | IPNPDOC ---
Subjective Date Seen The patient was seen on 12/26/16. Subjective Chief Complaint/HPI The patient is a 81-year-old male admitted with a reason for visit of Liver Abcess. Events since last encounter Pt states he feels good. Denies pain, CP, SOB, Abd pain. When asked if he knows where he is, he answers that he is "forgetful". He states the year is "29 ". Pulmonary: Denies: Dyspnea Cardiovascular: Denies: Chest Pain Gastrointestinal: Denies: Abdominal Pain Objective Physical Examination General Exam: Positive: Alert, No Acute Distress ENT Exam: Positive: Mucous membr. moist/pink Chest Exam: Positive: Diminished, Negative: Clear to auscultation, Normal air movement, Rales, Rhonchi, Wheezing Heart Exam: Positive: Rate Normal, Normal S1, Normal S2, Negative: Murmurs Abdomen Exam: Positive: Normal bowel sounds, Soft, Other (drain is present in his right flank draining scant serous fluid), Negative: Tenderness Extremity Exam: Negative: Edema Psych Exam: Negative: Mental status NL (alert and oriented to person only. When asked if he knows where he is, he answers that he is "forgetful". He states the year is "29".), Memory Intact, Oriented x 3 Assessment /Plan Problems (1) Liver abscess Status: Acute Response to Treatment: Stable Discussed With: Nurse, Retail Support Manager, Patient Problem Specific Plan: Consult Specialist, Monitor Clinically, Repeat Labs Problem Text: 12/26 - WBC up today to 12.2 (10.0 yesterday). On IV Ceftriaxone D6. Afebrile. CRP trending down. 12/25 - remains afebrile without significant leukocytosis, although WBC did increase today from 8.2 to 10. Will repeat ESR, CRP in AM. Cont with IV Ceftriaxone D 5. 12/24 - Today's labs pending. IV ceftriaxone D4 (12/20 received vanco 1 and Primaxin). 12/23 - ceftriaxone D3 (12/20 received vanco 1 and Primaxin). Afebrile, and vital signs stable. -Gram stain, fluid culture, ascites culture, and blood culture are negative; final results -We will plan on transition to oral medications in anticipation for discharge; clindamycin would cover anaerobes and gram positives and is not on patient's allergy list (2) Empyema of right pleural space Status: Acute Response to Treatment: Stable Discussed With: Nurse, Retail Support Manager, Patient Problem Specific Plan: Consult Specialist, Monitor Clinically, Repeat Labs Problem Text: Fluid cultures are negative, final results (3) Hypothyroidism Status: Chronic Response to Treatment: Stable Problem Specific Plan: Monitor Clinically Problem Text: Cont home med. Plan/VTE VTE Prophylaxis Ordered?: Yes Plan Medications: Change to PO Anticipated Discharge: Assisted Living Family Medicine Attending Note: I saw and examined Mr. Bryan, discussed with YAZMIN Pepper. Agree with their note as documented. I checked the sensitivity from the fluid that was drained out of his liver abscess just prior to his admission. It shows an Escherichia coli that is sensitive to Bactrim. His profile looks like he do fine with Bactrim. I'll start this medication today. If his infection does not look like it's getting worse we may send him back to [facility] where he lives tomorrow. 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) VS, I&O, 24H, Fishbone Vital Signs/I&O Vital Signs Date Time Temp Pulse Resp B/P (MAP) Pulse Ox O2 Delivery O2 Flow Rate FiO2 12/26/16 06:00 99.2 65 14 139/69 (92) 90 Room Air Laboratory Data 24H LABS Laboratory Tests 2 12/26/16 06:54: Anion Gap 6L, Glomerular Filtration Rate > 60.0, Blood Urea Nitrogen 7, Creatinine 0.75, Sodium Level 139, Potassium Level 3.5, Chloride Level 106, Carbon Dioxide Level 27, Calcium Level 8.4L, Aspartate Amino Transf (AST/SGOT) 32, Alanine Aminotransferase (ALT/SGPT) 27, Alkaline Phosphatase 47, Total Bilirubin 0.4, Total Protein 6.2L, Albumin 2.1L, C-Reactive Protein, Quantitative 4.75H, Albumin/Globulin Ratio 0.51L CBC/BMP Laboratory Tests 12/26/16 06:54 Red Blood Count 3.92 L, Mean Corpuscular Volume 86.9, Mean Corpuscular Hemoglobin 28.8, Mean Corpuscular Hemoglobin Concent 33.1, Red Cell Distribution Width 13.7, Calcium Level 8.4 L, Aspartate Amino Transf (AST/SGOT) 32, Alanine Aminotransferase (ALT/SGPT) 27, Alkaline Phosphatase 47, Total Bilirubin 0.4, Total Protein 6.2 L, Albumin 2.1 L Microbiology Microbiology 6/29/17 Blood Culture - Final, Complete NO GROWTH AFTER 5 DAYS 12/21/16 Anaerobic Culture - Final, Complete 12/21/16 Gram Stain - Final, Complete 12/21/16 Body Fluid Culture - Final, Complete Ike Haley [facility] Dec 26, 2016 07:50 Mike Benoit MD Dec 28, 2016 00:57
[2016-12-26] MEDS: BACTRIM 160MG/800MG DS TAB PO SCH ×2 (09:00→19:33)
[2016-12-26] MEDS: CYANOCOBALAMIN 500 MCG TAB PO SCH ×2 (10:28→19:33)
[2016-12-26] MEDS: POTASSIUM CHLORIDE 10 MEQ SR TABLET PO SCH (10:29)
[2016-12-26] MEDS: PANTOPRAZOLE 40MG TAB (PROTONIX) PO SCH (10:29)
[2016-12-26] MEDS: SENOKOT S TAB PO SCH ×2 (10:29→19:33)
[2016-12-26 14:00] VITALS: BP 122/58
[2016-12-26 22:00] VITALS: BP 144/75
[2016-12-27] MEDS: LEVOTHYROXINE 88MCG TABLET (0.088 MG) PO SCH (05:15)
[2016-12-27] MEDS: HEPARIN SOD (PORCINE) 5000 UNITS/ML VIAL SC SCH (05:15)
[2016-12-27 06:00] VITALS: BP 125/67
[2016-12-27 07:11] LABS: BASO % 0.3 % (0.0-1.0); EOS # 0.3 K/mm3 (0.0-0.50); EOS % 3.2 % (0.0-3.0); LARGE UNSTAINED CELL # 0.2 K/mm3 (0.0-0.4); LARGE UNSTAINED CELL % 1.9 % (0.0-4.0); LYMPH # 1.8 K/mm3 (1.5-4.5); LYMPH % 16.3 % (24.0-44.0); MEAN CORPUSCULAR HEMOGLOBIN 28.8 pg (27.0-33.0); MEAN CORPUSCULAR HGB CONC 33.6 g/dl (32.0-36.5); MEAN CORPUSCULAR VOLUME 85.9 fl (80.0-96.0); MONO # 0.8 K/mm3 (0.0-0.8); MONO % 7.6 % (0.0-5.0); NEUTROPHILS # 7.2 K/mm3 (1.8-7.7); NEUTROPHILS % 70.7 % (36.0-66.0); PLATELET COUNT, AUTOMATED 346 k/mm3 (150-450); RED CELL DISTRIBUTION WIDTH 14.1 % (11.5-14.5); WHITE BLOOD COUNT 10.1 K/mm3 (4.0-10.0)
[2016-12-27 07:29] LABS: ALBUMIN 2.1 GM/DL (3.2-5.2); ALBUMIN/GLOBULIN RATIO 0.49 (1.00-1.93); ALKALINE PHOSPHATASE 49 U/L (45-117); ALT/SGPT 27 U/L (12-78); ANION GAP 7 MEQ/L (8-16); AST/SGOT 29 U/L (15-37); BILIRUBIN,TOTAL 0.4 MG/DL (0.2-1.0); BLOOD UREA NITROGEN 7 MG/DL (7-18); CALCIUM LEVEL 8.4 MG/DL (8.8-10.2); CARBON DIOXIDE LEVEL 27 MEQ/L (21-32); CHLORIDE LEVEL 105 MEQ/L (98-107); CREATININE FOR GFR 0.87 MG/DL (0.70-1.30); GLOMERULAR FILTRATION RATE > 60.0 (>35); GLUCOSE, FASTING 93 MG/DL (83-110); POTASSIUM SERUM 3.8 MEQ/L (3.5-5.1); SODIUM LEVEL 139 MEQ/L (136-145); TOTAL PROTEIN 6.4 GM/DL (6.4-8.2)
[2016-12-27 08:30] LABS: ERYTHROCYTE SEDIMENTATION RATE 71 mm/hr (0-20)
[2016-12-27] MEDS ORDERED: SULF1TAB23 PO (09:16)
--- NOTE | 2016-12-27 09:50 | DSES ---
DATE OF ADMISSION: 12/21/2016 DATE OF DISCHARGE: 12/27/2016 PRIMARY CARE PROVIDER: Dr. Farhad Tomlinson. ATTENDING PHYSICIAN: Dr. Mike Benoit. HISTORY OF PRESENT ILLNESS: Jeff Murry is an 81-year-old male patient of Dr. Tomlinson who came to the hospital for evaluation. The patient with a history of liver abscess. He did have a drainage catheter that was placed by interventional radiology. He was initially treated with Cipro and Flagyl, however, culture showed the E-coli. In the meantime the patient had a fever and came to the emergency room (ER). He was placed on IV ceftriaxone. His white blood cell count did improve on the IV ceftriaxone and CRP eventually did trend down. By one day prior to discharge, the patient was taken off the IV ceftriaxone and changed to oral Bactrim. He was doing well on that. Plan today is to have the drain removed by interventional radiology. The patient will be discharged back to [facility] on five additional days of Bactrim. Blood cultures were negative. The patient was maintained on his normal medications. By day of discharge he was doing well. He also was noted to have an empyema of the right pleural space. Fluid cultures were negative. He had no additional problems. He will be discharged back to [facility] today after his drain is discontinued. PHYSICAL EXAMINATION: VITALS: Temperature 98.5, pulse 76, respiratory 14, blood pressure is 125/67, pulse ox 90. GENERAL: The patient is alert, no acute distress. No respiratory distress. HEENT: Head is normocephalic, atraumatic. CHEST: Clear to auscultation bilaterally. No wheezes, rales, rhonchi or crackles. HEART: Regular rate and rhythm. ABDOMEN: Positive bowel sounds, soft, nontender. EXTREMITIES: No edema. LABS: WBC 10.1, hemoglobin 11.1, hematocrit 33.2, platelets 346, sed rate 71, sodium 139, potassium 3.8, chloride 105, carbon dioxide 27, BUN 7, creatinine 0.87, glucose 93, calcium 8.4, total bili 0.4, AST 29, ALT 27, alk phos 49, CRP 5.02, total protein 6.4, albumin 2.1. MEDICATIONS: - Bactrim DS 1 tablet by mouth twice a day times 5 days - Lipitor 10 mg by mouth daily - vitamin B12 1000 mcg by mouth twice a day - Synthroid 88 mcg by mouth daily - Azilect 1 mg p.o. daily DISCHARGE INSTRUCTIONS: The patient is to followup with Dr. Tomlinson in a week. The patient will follow with interventional radiology per their instructions. Diet is regular. Activity is with assist. DISCHARGE DIAGNOSES: 1. Liver abscess. 2. Empyema of right pleural. 3. Hypothyroidism. 4. Parkinson's disease. 5. Dementia. MTDD
[2016-12-27] MEDS ORDERED: ISOVUE-300 61% 50ML VIAL (Q9967) As Ordered ONE (10:13)
[2016-12-27] MEDS ORDERED: LIDOCAINE 2% MDV 20 ML VIAL As Ordered ONE (10:14)
[2016-12-27] MEDS: BACTRIM 160MG/800MG DS TAB PO SCH (11:41)
[2016-12-27] MEDS: SENOKOT S TAB PO SCH (11:41)
[2016-12-27] MEDS: PANTOPRAZOLE 40MG TAB (PROTONIX) PO SCH (11:41)
[2016-12-27] MEDS: CYANOCOBALAMIN 500 MCG TAB PO SCH (11:42)
[2016-12-27] MEDS: POTASSIUM CHLORIDE 10 MEQ SR TABLET PO SCH (11:43)
--- NOTE | 2016-12-27 16:29 | REP ---
RIGHT PERIHEPATIC ABSCESS DRAIN CHECK: The procedure was performed under the personal supervision of Dr. Guy. The patient has a history of a right perihepatic abnormal fluid collection seen on a CAT scan dated 12/10/2016. A drainage catheter was placed on 12/17/2016. Approximately 3 mL of [id number]-370 was injected into the existing drainage tube. The images demonstrate filling of the cavity which is only as big as the catheter. There was contrast seen coming back out the tract. The patient stated there has been only minimal drainage over the last couple of days. The catheter was then removed without difficulty. A sterile dressing was applied. The patient tolerated the procedure well and there were no immediate complications. 0.2 minutes of fluoroscopy time was utilized for this procedure. Reviewed by FREDRICK Epperson 12/27/2016 04:39 PEdited and Signed by Khoi Guy MD 12/27/2016 04:53 P
== END 2016-12-27 12:19 | DRG 981 ==
LOC: M ED 22:22 → EDBD 22:22 → M ED INP 12-21 03:14 → M MS5PR 12-21 05:10
PROVIDERS: ADMIT Hospitalist; ATTEND Family Medicine
PROC: 0DPW30Z Removal of Drainage Device from Peritoneum, Percutaneous Approach (ICD-10-PCS; principal; 2016-12-20)
PROC: 0W9930Z Drainage of Right Pleural Cavity with Drainage Device, Percutaneous Approach (ICD-10-PCS; 2016-12-21)
DX: K75.0 Abscess of liver (principal); J86.9 Pyothorax without fistula; E03.9 Hypothyroidism, unspecified; G20 Parkinson's disease; B96.20 Unspecified Escherichia coli [E. coli] as the cause of diseases classified elsewhere; Z66 Do not resuscitate; Z79.899 Other long term (current) drug therapy; Z85.46 Personal history of malignant neoplasm of prostate; Z92.3 Personal history of irradiation; Z90.49 Acquired absence of other specified parts of digestive tract; Z88.0 Allergy status to penicillin; Z88.5 Allergy status to narcotic agent; Z88.8 Allergy status to other drugs, medicaments and biological substances

== ENCOUNTER → 2017-01-01 | Outpatient (REF) | payer MEDICARE, OTHER ==
[~2017-01-01] MED LIST changes: +ACET-683 PO; +AZIL1TAB PO; +BACT800T5 PO; +SULF1TAB23 PO
[2017-01-01 19:33] LABS: CREATININE FOR GFR 1.42 MG/DL (0.70-1.30); GLOMERULAR FILTRATION RATE 51.1 (>35); POTASSIUM SERUM 4.9 MEQ/L (3.5-5.1)
[2017-01-01 19:40] LABS: BASO % 0.4 % (0.0-1.0); EOS # 0.2 K/mm3 (0.0-0.50); EOS % 1.7 % (0.0-3.0); LARGE UNSTAINED CELL # 0.2 K/mm3 (0.0-0.4); LARGE UNSTAINED CELL % 1.7 % (0.0-4.0); LYMPH # 2.1 K/mm3 (1.5-4.5); LYMPH % 19.8 % (24.0-44.0); MEAN CORPUSCULAR HEMOGLOBIN 29.4 pg (27.0-33.0); MEAN CORPUSCULAR HGB CONC 32.7 g/dl (32.0-36.5); MEAN CORPUSCULAR VOLUME 89.7 fl (80.0-96.0); MONO # 0.8 K/mm3 (0.0-0.8); MONO % 7.9 % (0.0-5.0); NEUTROPHILS # 6.6 K/mm3 (1.8-7.7); NEUTROPHILS % 68.5 % (36.0-66.0); PLATELET COUNT, AUTOMATED 472 k/mm3 (150-450); RED CELL DISTRIBUTION WIDTH 14.2 % (11.5-14.5); WHITE BLOOD COUNT 9.6 K/mm3 (4.0-10.0)
[2017-01-01 21:27] LABS: ERYTHROCYTE SEDIMENTATION RATE 70 mm/hr (0-20)
== END ==
LOC: M SFHCADAM 14:23
PROVIDERS: ATTEND Family Medicine
DX: K75.0 Abscess of liver (principal); D64.9 Anemia, unspecified
CPT/HCPCS: 80048; 85025; 85652; G0463

== ENCOUNTER → 2017-03-01 | Outpatient (REF) | payer MEDICARE, OTHER ==
[2017-03-01 20:54] LABS: MEAN CORPUSCULAR HEMOGLOBIN 28.5 pg (27.0-33.0); MEAN CORPUSCULAR HGB CONC 31.9 g/dl (32.0-36.5); MEAN CORPUSCULAR VOLUME 89.5 fl (80.0-96.0); RED CELL DISTRIBUTION WIDTH 14.5 % (11.5-14.5); WHITE BLOOD COUNT 9.3 K/mm3 (4.0-10.0)
[2017-03-01 20:59] LABS: ALBUMIN 3.7 GM/DL (3.2-5.2); ALBUMIN/GLOBULIN RATIO 1.03 (1.00-1.93); ALKALINE PHOSPHATASE 81 U/L (45-117); ALT/SGPT 19 U/L (12-78); ANION GAP 5 MEQ/L (8-16); AST/SGOT 17 U/L (15-37); BILIRUBIN,TOTAL 0.7 MG/DL (0.2-1.0); BLOOD UREA NITROGEN 18 MG/DL (7-18); CALCIUM LEVEL 9.4 MG/DL (8.8-10.2); CARBON DIOXIDE LEVEL 30 MEQ/L (21-32); CHLORIDE LEVEL 104 MEQ/L (98-107); CREATININE FOR GFR 1.14 MG/DL (0.70-1.30); GLOMERULAR FILTRATION RATE > 60.0 (>35); GLUCOSE, FASTING 87 MG/DL (83-110); POTASSIUM SERUM 4.3 MEQ/L (3.5-5.1); SODIUM LEVEL 139 MEQ/L (136-145); TOTAL PROTEIN 7.3 GM/DL (6.4-8.2)
== END ==
LOC: M SFHCADAM 15:04
PROVIDERS: ATTEND Family Medicine
DX: K75.0 Abscess of liver (principal); D64.9 Anemia, unspecified; N17.9 Acute kidney failure, unspecified

== ENCOUNTER → 2017-04-02 | Outpatient (REF) | payer MEDICARE, OTHER | LOC: M LAB REF 17:46 | PROVIDERS: ATTEND Surgery | DX: C44.519 Basal cell carcinoma of skin of other part of trunk (principal) ==

== ENCOUNTER 2017-07-10 10:04 | Emergency (ER) | payer MEDICARE, OTHER ==
[2017-07-10 11:04] LABS: BASO % 0.2 % (0.0-1.0); EOS % 0.1 % (0.0-3.0); HEMATOCRIT 37.1 % (42.0-52.0); HEMOGLOBIN 12.5 g/dl (14.0-18.0); IMMATURE GRANULOCYTE # 0.1 10^3/uL (0-0); IMMATURE GRANULOCYTE % 0.8 % (0-0); LYMPH # 1.1 10^3/uL (1.5-4.5); LYMPH % 8.1 % (24.0-44.0); MEAN CORPUSCULAR HEMOGLOBIN 28.8 pg (27.0-33.0); MEAN CORPUSCULAR HGB CONC 33.7 g/dl (32.0-36.5); MEAN CORPUSCULAR VOLUME 85.5 fl (80.0-96.0); MONO # 0.7 10^3/uL (0.0-0.8); MONO % 5.2 % (0.0-5.0); NEUTROPHILS # 11.8 10^3/uL (1.8-7.7); NEUTROPHILS % 85.6 % (36.0-66.0); PLATELET COUNT, AUTOMATED 234 10^3/uL (150-450); RED BLOOD COUNT 4.34 10^6/uL (4.30-6.10); RED CELL DISTRIBUTION WIDTH 13.6 % (11.5-14.5); WHITE BLOOD COUNT 13.8 10^3/uL (4.0-10.0)
[2017-07-10 11:40] LABS: ALBUMIN 3.2 GM/DL (3.2-5.2); ALBUMIN/GLOBULIN RATIO 0.86 (1.00-1.93); ALKALINE PHOSPHATASE 70 U/L (45-117); ALT/SGPT < 6 U/L (12-78); ANION GAP 4 MEQ/L (8-16); AST/SGOT 22 U/L (7-37); BILIRUBIN,DIRECT 0.2 MG/DL (0.0-0.2); BILIRUBIN,TOTAL 0.7 MG/DL (0.2-1.0); BLOOD UREA NITROGEN 13 MG/DL (7-18); CALCIUM LEVEL 8.7 MG/DL (8.8-10.2); CARBON DIOXIDE LEVEL 28 MEQ/L (21-32); CHLORIDE LEVEL 106 MEQ/L (98-107); CREATININE FOR GFR 0.89 MG/DL (0.70-1.30); GLOMERULAR FILTRATION RATE > 60.0 (>35); GLUCOSE, FASTING 105 MG/DL (83-110); LIPASE 119 U/L (73-393); POTASSIUM SERUM 4.4 MEQ/L (3.5-5.1); SODIUM LEVEL 138 MEQ/L (136-145); TOTAL PROTEIN 6.9 GM/DL (6.4-8.2)
[2017-07-10 12:24] LABS: APPEARANCE, URINE CLEAR (CLEAR); BACTERIA, URINE AUTO NEGATIVE (NEGATIVE); BILIRUBIN, URINE AUTO NEGATIVE (NEGATIVE); BLOOD, URINE BLOOD NEGATIVE (NEGATIVE); COLOR, URINE YELLOW (YELLOW); GLUCOSE, URINE (UA) AUTO NEGATIVE (NEGATIVE); KETONE, URINE AUTO TRACE mg/dL (NEGATIVE); LEUKOCYTE ESTERASE, URINE AUTO NEGATIVE (NEGATIVE); MUCUS, URINE SMALL (NEGATIVE); NITRITE, URINE AUTO NEGATIVE (NEGATIVE); PROTEIN, URINE AUTO NEGATIVE (NEGATIVE); RBC, URINE AUTO 2 /HPF (0-3); SPECIFIC GRAVITY URINE AUTO 1.019 (1.002-1.035); SQUAMOUS EPITHELIAL CELL UR AU 0 /HPF (0-6); WBC, URINE AUTO 1 /HPF (0-3)
[2017-07-10 12:43] LABS: CK-MB VALUE MASS 1.8 NG/ML (0.0-3.6); CPK CREATINE PHOSPHOKINASE 80 U/L (39-308); MB/CK RELATIVE INDEX 2.25 (< OR =4); TROPONIN I < 0.02 NG/ML (< 0.10)
[2017-07-10] MEDS: ACETAMINOPHEN TAB 650MG DOSE (2X325MG) PO (13:10)
== END 2017-07-10 15:56 | disposition home or self-care (01) ==
LOC: M ED 10:04
DX: S00.03XA Contusion of scalp, initial encounter (principal); W19.XXXA Unspecified fall, initial encounter; Y92.129 Unspecified place in nursing home as the place of occurrence of the external cause; G20 Parkinson's disease; Z79.899 Other long term (current) drug therapy; Z79.890 Hormone replacement therapy; Z88.0 Allergy status to penicillin; Z88.5 Allergy status to narcotic agent; Z88.6 Allergy status to analgesic agent; Z88.8 Allergy status to other drugs, medicaments and biological substances
CPT/HCPCS: 71046

== ENCOUNTER → 2017-07-17 | Outpatient (REF) | payer MEDICARE, OTHER ==
[2017-07-17 11:05] LABS: ANION GAP 7 MEQ/L (8-16); BLOOD UREA NITROGEN 13 MG/DL (7-18); CALCIUM LEVEL 8.8 MG/DL (8.8-10.2); CARBON DIOXIDE LEVEL 30 MEQ/L (21-32); CHLORIDE LEVEL 103 MEQ/L (98-107); CREATININE FOR GFR 1.05 MG/DL (0.70-1.30); GLOMERULAR FILTRATION RATE > 60.0 (>35); GLUCOSE, FASTING 103 MG/DL (70-100); SODIUM LEVEL 140 MEQ/L (136-145)
== END ==
DX: E74.9 Disorder of carbohydrate metabolism, unspecified (principal)
CPT/HCPCS: 80048

== ENCOUNTER 2017-07-20 08:24 | Emergency (ER) | payer MEDICARE, OTHER ==
[2017-07-20 08:52] LABS: BASO % 0.4 % (0.0-1.0); EOS # 0.1 10^3/uL (0.0-0.50); EOS % 1.1 % (0.0-3.0); HEMATOCRIT 35.6 % (42.0-52.0); HEMOGLOBIN 11.7 g/dl (14.0-18.0); IMMATURE GRANULOCYTE # 0.1 10^3/uL (0-0); IMMATURE GRANULOCYTE % 0.8 % (0-0); LYMPH # 1.6 10^3/uL (1.5-4.5); LYMPH % 16.9 % (24.0-44.0); MEAN CORPUSCULAR HEMOGLOBIN 28.3 pg (27.0-33.0); MEAN CORPUSCULAR HGB CONC 32.9 g/dl (32.0-36.5); MEAN CORPUSCULAR VOLUME 86.2 fl (80.0-96.0); MONO # 0.7 10^3/uL (0.0-0.8); MONO % 7.8 % (0.0-5.0); NEUTROPHILS # 6.8 10^3/uL (1.8-7.7); PLATELET COUNT, AUTOMATED 291 10^3/uL (150-450); RED BLOOD COUNT 4.13 10^6/uL (4.30-6.10); RED CELL DISTRIBUTION WIDTH 13.9 % (11.5-14.5); WHITE BLOOD COUNT 9.3 10^3/uL (4.0-10.0)
[2017-07-20] MEDS: NS 500 ML IV (09:04)
[2017-07-20 09:11] LABS: ANION GAP 5 MEQ/L (8-16); BLOOD UREA NITROGEN 11 MG/DL (7-18); CALCIUM LEVEL 8.3 MG/DL (8.8-10.2); CARBON DIOXIDE LEVEL 28 MEQ/L (21-32); CHLORIDE LEVEL 106 MEQ/L (98-107); CREATININE FOR GFR 0.97 MG/DL (0.70-1.30); GLOMERULAR FILTRATION RATE > 60.0 (>35); GLUCOSE, FASTING 111 MG/DL (70-100); MAGNESIUM LEVEL 2.1 MG/DL (1.8-2.4); POTASSIUM SERUM 3.7 MEQ/L (3.5-5.1); SODIUM LEVEL 139 MEQ/L (136-145)
== END 2017-07-20 10:36 | disposition home or self-care (01) ==
LOC: M ED 08:24
DX: I95.1 Orthostatic hypotension (principal); E03.9 Hypothyroidism, unspecified; G20 Parkinson's disease; Z79.890 Hormone replacement therapy; Z79.899 Other long term (current) drug therapy
CPT/HCPCS: 71045

== ENCOUNTER → 2017-07-23 | Outpatient (CLI) | payer MEDICARE, OTHER ==
[~2017-07-23] MED LIST changes: -/ESCI20TA PO; -ACET-683 PO; -ASPI81CH PO; -ASPI81TA83 OR; -AZIL1TAB PO; -B-1210009 PO; -B12-1CHW PO; -BACT800T5 PO; -CITA20TA4 PO; -LEVO88TA3 PO; -LIPI10TA PO; -OMEP20TA7 PO; +PROHANCE 279.3MG/ML 15ML VIAL (A9576) As Ordered; -SULF1TAB23 PO; -SYNT88TA PO
== END ==
LOC: M RAD 11:31
DX: R10.11 Right upper quadrant pain (principal); K75.0 Abscess of liver
CPT/HCPCS: A9576

== ENCOUNTER → 2017-08-07 | Outpatient (REF) | payer MEDICARE, OTHER ==
[2017-08-07 15:57] LABS: BASO % 0.3 % (0.0-1.0); EOS # 0.1 10^3/uL (0.0-0.50); HEMATOCRIT 36.7 % (42.0-52.0); IMMATURE GRANULOCYTE % 0.4 % (0-3.0); LYMPH # 1.7 10^3/uL (1.5-4.5); MEAN CORPUSCULAR HGB CONC 32.7 g/dl (32.0-36.5); MEAN CORPUSCULAR VOLUME 85.5 fl (80.0-96.0); MONO # 0.9 10^3/uL (0.0-0.8); MONO % 9.1 % (0.0-5.0); NEUTROPHILS # 7.1 10^3/uL (1.8-7.7); NEUTROPHILS % 72.2 % (36.0-66.0); PLATELET COUNT, AUTOMATED 403 10^3/uL (150-450); RED BLOOD COUNT 4.29 10^6/uL (4.30-6.10); RED CELL DISTRIBUTION WIDTH 13.6 % (11.5-14.5); WHITE BLOOD COUNT 9.8 10^3/uL (4.0-10.0)
[2017-08-07 16:27] LABS: ALBUMIN 2.8 GM/DL (3.2-5.2); ALBUMIN/GLOBULIN RATIO 0.72 (1.00-1.93); ALKALINE PHOSPHATASE 111 U/L (45-117); ALT/SGPT 11 U/L (12-78); ANION GAP 6 MEQ/L (8-16); AST/SGOT 16 U/L (7-37); BILIRUBIN,TOTAL 0.4 MG/DL (0.2-1.0); BLOOD UREA NITROGEN 13 MG/DL (7-18); CALCIUM LEVEL 8.6 MG/DL (8.8-10.2); CARBON DIOXIDE LEVEL 30 MEQ/L (21-32); CHLORIDE LEVEL 102 MEQ/L (98-107); CREATININE FOR GFR 0.93 MG/DL (0.70-1.30); GLOMERULAR FILTRATION RATE > 60.0 (>35); GLUCOSE, FASTING 98 MG/DL (70-100); NT-PRO BNP 342 PG/ML (<450); POTASSIUM SERUM 4.3 MEQ/L (3.5-5.1); SODIUM LEVEL 138 MEQ/L (136-145); TOTAL PROTEIN 6.7 GM/DL (6.4-8.2)
== END ==
LOC: M SFHCPLAZ 14:45
DX: R60.0 Localized edema (principal); R53.83 Other fatigue
CPT/HCPCS: 80053

== ENCOUNTER 2017-08-09 12:17 | Emergency (ER) | payer MEDICARE, OTHER | END 2017-08-09 15:42 | disposition home or self-care (01) | LOC: M ED 12:17 | DX: I95.1 Orthostatic hypotension (principal); W19.XXXA Unspecified fall, initial encounter; Y92.129 Unspecified place in nursing home as the place of occurrence of the external cause; Y93.9 Activity, unspecified; I10 Essential (primary) hypertension; F03.90 Unspecified dementia, unspecified severity, without behavioral disturbance, psychotic disturbance, mood disturbance, and anxiety; Z85.46 Personal history of malignant neoplasm of prostate; K75.0 Abscess of liver; Z79.899 Other long term (current) drug therapy; Z88.6 Allergy status to analgesic agent; Z88.0 Allergy status to penicillin; Z88.8 Allergy status to other drugs, medicaments and biological substances | CPT/HCPCS: 71101 ==

== ENCOUNTER → 2017-08-14 | Outpatient (REF) | payer MEDICARE, OTHER ==
[2017-08-14 09:42] LABS: ANION GAP 9 MEQ/L (8-16); BLOOD UREA NITROGEN 14 MG/DL (7-18); CALCIUM LEVEL 9.4 MG/DL (8.8-10.2); CARBON DIOXIDE LEVEL 31 MEQ/L (21-32); CHLORIDE LEVEL 95 MEQ/L (98-107); CREATININE FOR GFR 1.05 MG/DL (0.70-1.30); GLOMERULAR FILTRATION RATE > 60.0 (>35); GLUCOSE, FASTING 112 MG/DL (70-100); POTASSIUM SERUM 3.5 MEQ/L (3.5-5.1); SODIUM LEVEL 135 MEQ/L (136-145)
== END ==
DX: R60.0 Localized edema (principal)
CPT/HCPCS: 80048

== ENCOUNTER 2017-08-21 13:38 | Emergency (ER) | payer MEDICARE, OTHER ==
[2017-08-21] MEDS ORDERED: NS 1,000 ML IV (14:06)
[2017-08-21 14:25] LABS: BASO # 0.1 10^3/uL (0.0-0.2); BASO % 0.6 % (0.0-1.0); EOS # 0.1 10^3/uL (0.0-0.50); EOS % 0.7 % (0.0-3.0); HEMOGLOBIN 12.6 g/dl (14.0-18.0); IMMATURE GRANULOCYTE % 0.3 % (0-3.0); LYMPH # 2.5 10^3/uL (1.5-4.5); LYMPH % 25.2 % (24.0-44.0); MEAN CORPUSCULAR HEMOGLOBIN 27.6 pg (27.0-33.0); MEAN CORPUSCULAR HGB CONC 33.2 g/dl (32.0-36.5); MEAN CORPUSCULAR VOLUME 83.3 fl (80.0-96.0); MONO # 0.9 10^3/uL (0.0-0.8); MONO % 9.2 % (0.0-5.0); NEUTROPHILS # 6.3 10^3/uL (1.8-7.7); PLATELET COUNT, AUTOMATED 346 10^3/uL (150-450); RED BLOOD COUNT 4.56 10^6/uL (4.30-6.10); WHITE BLOOD COUNT 9.9 10^3/uL (4.0-10.0)
[2017-08-21 14:35] LABS: INR 0.95; PROTHROMBIN TIME 12.7 SECONDS (12.4-14.5)
[2017-08-21 15:01] LABS: ALBUMIN 3.4 GM/DL (3.2-5.2); ALBUMIN/GLOBULIN RATIO 0.94 (1.00-1.93); ALKALINE PHOSPHATASE 94 U/L (45-117); ALT/SGPT 14 U/L (12-78); ANION GAP 8 MEQ/L (8-16); AST/SGOT 19 U/L (7-37); BILIRUBIN,DIRECT 0.2 MG/DL (0.0-0.2); BILIRUBIN,TOTAL 0.7 MG/DL (0.2-1.0); BLOOD UREA NITROGEN 25 MG/DL (7-18); CALCIUM LEVEL 9.1 MG/DL (8.8-10.2); CARBON DIOXIDE LEVEL 31 MEQ/L (21-32); CHLORIDE LEVEL 97 MEQ/L (98-107); CPK CREATINE PHOSPHOKINASE 56 U/L (39-308); CREATININE FOR GFR 1.32 MG/DL (0.70-1.30); GLOMERULAR FILTRATION RATE 55.6 (>35); GLUCOSE, FASTING 101 MG/DL (70-100); LIPASE 173 U/L (73-393); MB/CK RELATIVE INDEX 1.78 (< OR =4); POTASSIUM SERUM 3.4 MEQ/L (3.5-5.1); SODIUM LEVEL 136 MEQ/L (136-145); TROPONIN I < 0.02 NG/ML (< 0.10)
[2017-08-21] MEDS: NS 500 ML IV ×2 (15:45→17:26)
== END 2017-08-21 18:43 | disposition home or self-care (01) ==
LOC: M ED 13:38
DX: G31.83 Neurocognitive disorder with Lewy bodies (principal); I95.1 Orthostatic hypotension; E78.70 Disorder of bile acid and cholesterol metabolism, unspecified; E07.9 Disorder of thyroid, unspecified; Z79.890 Hormone replacement therapy; Z79.899 Other long term (current) drug therapy; Z88.5 Allergy status to narcotic agent; Z88.8 Allergy status to other drugs, medicaments and biological substances; Z88.0 Allergy status to penicillin; Z87.19 Personal history of other diseases of the digestive system; Z98.890 Other specified postprocedural states
CPT/HCPCS: 70450

== ENCOUNTER → 2017-09-04 | Outpatient (REF) | payer MEDICARE, OTHER ==
[2017-09-04 12:19] LABS: HEMATOCRIT 39.8 % (42.0-52.0); MEAN CORPUSCULAR HEMOGLOBIN 27.6 pg (27.0-33.0); MEAN CORPUSCULAR HGB CONC 32.7 g/dl (32.0-36.5); MEAN CORPUSCULAR VOLUME 84.5 fl (80.0-96.0); PLATELET COUNT, AUTOMATED 290 10^3/uL (150-450); RED BLOOD COUNT 4.71 10^6/uL (4.30-6.10); RED CELL DISTRIBUTION WIDTH 14.1 % (11.5-14.5); WHITE BLOOD COUNT 8.8 10^3/uL (4.0-10.0)
[2017-09-04 13:28] LABS: ALBUMIN 3.1 GM/DL (3.2-5.2); ALBUMIN/GLOBULIN RATIO 0.78 (1.00-1.93); ALKALINE PHOSPHATASE 96 U/L (45-117); ALT/SGPT 13 U/L (12-78); ANION GAP 10 MEQ/L (8-16); AST/SGOT 19 U/L (7-37); BILIRUBIN,TOTAL 0.9 MG/DL (0.2-1.0); BLOOD UREA NITROGEN 22 MG/DL (7-18); CALCIUM LEVEL 9.2 MG/DL (8.8-10.2); CARBON DIOXIDE LEVEL 31 MEQ/L (21-32); CHLORIDE LEVEL 96 MEQ/L (98-107); CREATININE FOR GFR 1.13 MG/DL (0.70-1.30); GLOMERULAR FILTRATION RATE > 60.0 (>35); GLUCOSE, FASTING 93 MG/DL (70-100); POTASSIUM SERUM 3.4 MEQ/L (3.5-5.1); SODIUM LEVEL 137 MEQ/L (136-145); TOTAL PROTEIN 7.1 GM/DL (6.4-8.2)
== END ==
DX: E86.0 Dehydration (principal); K76.89 Other specified diseases of liver
CPT/HCPCS: 80053

== ENCOUNTER → 2017-09-13 | Outpatient (REF) | payer MEDICARE, OTHER ==
[2017-09-13 11:05] LABS: ANION GAP 6 MEQ/L (8-16); BLOOD UREA NITROGEN 13 MG/DL (7-18); CALCIUM LEVEL 8.6 MG/DL (8.8-10.2); CARBON DIOXIDE LEVEL 31 MEQ/L (21-32); CHLORIDE LEVEL 106 MEQ/L (98-107); CREATININE FOR GFR 0.86 MG/DL (0.70-1.30); GLOMERULAR FILTRATION RATE > 60.0 (>35); GLUCOSE, FASTING 111 MG/DL (70-100); POTASSIUM SERUM 4.1 MEQ/L (3.5-5.1); SODIUM LEVEL 143 MEQ/L (136-145)
== END ==
DX: E87.6 Hypokalemia (principal)
CPT/HCPCS: 80048

== ENCOUNTER → 2018-04-14 | Outpatient (REF) | payer MEDICARE, OTHER, MEDICAID ==
[2018-04-14 18:07] LABS: ANION GAP 8 MEQ/L (8-16); BLOOD UREA NITROGEN 22 MG/DL (7-18); CALCIUM LEVEL 8.9 MG/DL (8.8-10.2); CARBON DIOXIDE LEVEL 26 MEQ/L (21-32); CHLORIDE LEVEL 109 MEQ/L (98-107); CREATININE FOR GFR 0.99 MG/DL (0.70-1.30); GLOMERULAR FILTRATION RATE > 60.0 (>35); GLUCOSE, FASTING 76 MG/DL (70-100); POTASSIUM SERUM 4.2 MEQ/L (3.5-5.1); SODIUM LEVEL 143 MEQ/L (136-145)
[2018-04-14 18:12] LABS: BASO # 0.1 10^3/uL (0.0-0.2); BASO % 0.4 % (0.0-1.0); EOS # 0.3 10^3/uL (0.0-0.50); EOS % 2.5 % (0.0-3.0); HEMATOCRIT 36.4 % (42.0-52.0); HEMOGLOBIN 11.9 g/dl (13.5-17.5); IMMATURE GRANULOCYTE % 0.3 % (0-3.0); LYMPH # 3.2 10^3/uL (1.5-4.5); MEAN CORPUSCULAR HEMOGLOBIN 30.1 pg (27.0-33.0); MEAN CORPUSCULAR HGB CONC 32.7 g/dl (32.0-36.5); MEAN CORPUSCULAR VOLUME 91.9 fl (80.0-96.0); MONO # 1.1 10^3/uL (0.0-0.8); MONO % 9.9 % (0.0-5.0); NEUTROPHILS # 6.6 10^3/uL (1.8-7.7); NEUTROPHILS % 58.9 % (36.0-66.0); PLATELET COUNT, AUTOMATED 266 10^3/uL (150-450); RED BLOOD COUNT 3.96 10^6/uL (4.30-6.10); RED CELL DISTRIBUTION WIDTH 13.2 % (11.5-14.5); WHITE BLOOD COUNT 11.3 10^3/uL (4.0-10.0)
== END ==
DX: R53.83 Other fatigue (principal)
CPT/HCPCS: 84443

== ENCOUNTER → 2018-06-09 | Outpatient (REF) ==
[2018-06-09 12:25] LABS: HEMOGLOBIN 12.5 g/dl (13.5-17.5); MEAN CORPUSCULAR HGB CONC 32.1 g/dl (32.0-36.5); MEAN CORPUSCULAR VOLUME 93.5 fl (80.0-96.0); PLATELET COUNT, AUTOMATED 311 10^3/uL (150-450); RED BLOOD COUNT 4.17 10^6/uL (4.30-6.10); RED CELL DISTRIBUTION WIDTH 13.4 % (11.5-14.5); WHITE BLOOD COUNT 12.4 10^3/uL (4.0-10.0)
[2018-06-09 12:55] LABS: ANION GAP 6 MEQ/L (8-16); BLOOD UREA NITROGEN 18 MG/DL (7-18); CALCIUM LEVEL 8.9 MG/DL (8.8-10.2); CARBON DIOXIDE LEVEL 28 MEQ/L (21-32); CHLORIDE LEVEL 108 MEQ/L (98-107); CREATININE FOR GFR 0.94 MG/DL (0.70-1.30); GLOMERULAR FILTRATION RATE > 60.0 (>35); GLUCOSE, FASTING 101 MG/DL (70-100); POTASSIUM SERUM 4.3 MEQ/L (3.5-5.1); SODIUM LEVEL 142 MEQ/L (136-145)
== END ==
DX: R53.1 Weakness (principal)

== ENCOUNTER → 2018-06-10 | Outpatient (REF) ==
[2018-06-10 09:39] LABS: HEMATOCRIT 39.1 % (42.0-52.0); HEMOGLOBIN 12.6 g/dl (13.5-17.5); MEAN CORPUSCULAR HEMOGLOBIN 29.9 pg (27.0-33.0); MEAN CORPUSCULAR HGB CONC 32.2 g/dl (32.0-36.5); MEAN CORPUSCULAR VOLUME 92.9 fl (80.0-96.0); PLATELET COUNT, AUTOMATED 312 10^3/uL (150-450); RED BLOOD COUNT 4.21 10^6/uL (4.30-6.10); RED CELL DISTRIBUTION WIDTH 13.4 % (11.5-14.5); WHITE BLOOD COUNT 11.6 10^3/uL (4.0-10.0)
== END ==
DX: D72.829 Elevated white blood cell count, unspecified (principal)